=== PATIENT | male | born 1955 | race Caucasian/White ===

== ENCOUNTER → 2018-02-21 16:11 | Outpatient (CLI) | payer BC, SELFPAY ==
--- NOTE | 2018-02-21 16:11 | DT_ITS ---
This patient was seen during an EMR downtime February 18, 2018 - February 25, 2018. This patient may have a combination of paper and electronic documentation or all paper documentation. All documentation is viewable within the e-chart portion of [facility] for each patient visit.
[2018-02-26 01:39] LABS: PSA,Total- Diagnostic < 0.01 ng/mL (0.0-4.0)
== END ==
PROVIDERS: Visit Provider Nurse Practitioner Adult Health
DX: Z85.46 Personal history of malignant neoplasm of prostate (principal)
CPT/HCPCS: 36415; 84153

== ENCOUNTER → 2018-03-04 16:58 | Outpatient (CLI) | payer BC, SELFPAY ==
--- NOTE | 2018-03-04 | CYSPIN_PTH ---
PATIENT: ENMANUEL PHAM LOC: [facility] U#:[id number] AGE/SX: 69/M ROOM: RE03/04/[address]: NIRAV De Santiago : 1955 BED: DIS: SPEC #: [id number] RECD: 03/04/18 10:30 STATUS: KELLEY NICO #: [id number] VINITA: 03/04/18 00:[address]: Rosalie Barbosa NP DEPT: CYTOLOGY RECD BY: Paras Hui Tissues: Urine Procedures: Pap Stain (control) Special Stain Group II Cytospin Fluid HEADER OPERATION: Not noted PRE-OP DIAGNOSIS: History bladder neoplasm TISSUE SUBMITTED: Urine for cytology DIAGNOSIS CYTOLOGY Urine for cytology (cytospin): Atypical urothelial cells noted suspicious for urothelial carcinoma. 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 CYTOLOGY STUDY Slides are reviewed. CYTOLOGY GROSS Received is 70 ml of clear yellow fluid labeled with the patient's name and and designated per the requisition as urine. Submitted for cytology preparation. 03/05/18 TC:5 CPT: 45594
[2018-03-04 17:00] LABS: Cytology, Body Fluid / CSF SEE PATHOLOGY REPORT
== END ==
PROVIDERS: Visit Provider Nurse Practitioner Adult Health
DX: Z85.51 Personal history of malignant neoplasm of bladder (principal)
CPT/HCPCS: 88108; 88313

== ENCOUNTER → 2018-03-11 17:48 | Outpatient (CLI) | payer BC, SELFPAY ==
--- NOTE | 2018-03-11 | IMM_PTH ---
PATIENT: ENMANUEL PHAM LOC: [facility] U#:[id number] AGE/SX: 69/M ROOM: RE03/11/[address]: Dr. Heriberto Sherman MD : 1955 BED: DIS: SPEC #: [id number] RECD: 03/13/18 10:32 STATUS: KELLEY REQ #: [id number] VINITA: 03/11/18 00:[address]: Heriberto Sherman DEPT: IMMUNOHISTOCHEMISTRY RECD BY: Petrona De ENTERED: 03/13/18 10:33 SP TYPE: IMMUNO OTHR DR: Dr. Edwar Warner DO Tissues: Urinary bladder, NOS Procedures: CK20 (add) P53 (add) CK7 (initial) PHYSICIAN & INSTITUTION [place] [id number] SPECIMEN INFORMATION: Tissue Source: Bladder biopsy Clinical Info: Bladder mass, hematuria Specimen Number: [id number] CPT code: 94156, 22966 x2 METHODOLOGY: Deparaffinized sections of prefer/formalin-fixed tissue or PAP/DQ stained slides are incubated with monoclonal/polyclonal antibodies/oligonucleotide probes. Localization is made via biotin free immunoperoxidase method. Appropriate controls are performed and reacted as expected. Results on target cell population are indicated in the following table: RESULTS: ANTIBODY / CLONE RESULT CK7 (OV-TL12/30) positive CK20 (KS20.8) positive, focal P53 (DO-7) negative These tests were developed and their performance characteristics determined by [facility]. They may not have been cleared or approved by the U.[place]. Food and Drug Administration. The FDA has determined that such clearance or approval is not necessary. INTERPRETATION: Bladder biopsy: Negative for malignancy. This case has been reviewed in consultation with Dr. Casillas who concurs with the above diagnosis. SJ:cris 03/13/18
--- NOTE | 2018-03-11 16:35 | BLA_PTH ---
PATIENT: ENMANUEL PHAM LOC: [facility] U#:[id number] AGE/SX: 69/M ROOM: RE03/11/[address]: Dr. Heriberto Sherman MD : 1955 BED: DIS: SPEC #: [id number] RECD: 03/11/18 00:00 STATUS: KELLEY NICO #: [id number] VINITA: 03/11/18 16:[address]: Heriberto Sherman DEPT: SURGICAL PATHOLOGY RECD BY: Paras Hui Tissues: Urinary bladder, NOS Procedures: Surgery Specimen Level IV HEADER OPERATION: Bladder biopsy PRE-OP DIAGNOSIS: Bladder mass, hematuria TISSUE SUBMITTED: Bladder biopsy MICROSCOPIC DIAGNOSIS Bladder, biopsy: Fragmental urothelial mucosa with mild urothelial hyperplasia. See comment. Negative for malignancy. SJ:wayne 03/13/18 COMMENT Immunohistochemistry ([id number]) supports the above diagnosis. 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 urine for cytology with diagnosis of atypical urothelial cells suspicious for urothelial carcinoma. Slides are reviewed again. Case has been reviewed in consultation with Dr. Casillas who concurs with the above diagnosis. IDC:AM MICROSCOPIC DESCRIPTION Slides are reviewed. GROSS DESCRIPTION Received in fixative is one container labeled with the patient's name and designated no other designation. The specimen consists of one minute fragment of tissue measuring 0.1 x 0.2 x less than 0.1. The specimen is totally submitted in one cassette in a biopsy bag. KYLE:wayne 03/11/18 TC: 5 CPT: 08545
== END ==
PROVIDERS: Family Provider Family Medicine; PCP Family Medicine; Visit Provider Urology
DX: N32.9 Bladder disorder, unspecified (principal); R31.9 Hematuria, unspecified
CPT/HCPCS: 88305; 88341; 88342

== ENCOUNTER → 2018-08-19 09:53 | Outpatient (CLI) | payer OTHER, SELFPAY ==
[2018-08-19 12:27] LABS: PSA,Total- Diagnostic < 0.01 ng/mL (0.0-4.0)
--- OUTSIDE RECORDS SUMMARY | 2018-10-12 14:39 | XMS RPT_ITS ---
:1955 Author Organization OHIP Care Team Providers Name Role Phone Heriberto Sherman Attending Unavailable Alana, Edwar Primary Care Unavailable Heriberto Sherman Attending Unavailable Heriberto Sherman Referring Unavailable Alana, Edwar Primary Care Unavailable Rosalie Barbosa Attending Unavailable Rosalie Barbosa Referring Unavailable KRISTIE RAYMUNDO Primary Care Unavailable Rosalie Barbosa Attending Unavailable KRISTIE RAYMUNDO Primary Care Unavailable Rosalie Barbosa Referring Unavailable Heriberto Sherman Attending Unavailable Heriberto Sherman Referring Unavailable Alana, Edwar Primary Care Unavailable Heriberto Sherman Attending Unavailable LaneHeriberto Referring Unavailable Alana, Edwar Primary Care Unavailable Alana, Edwar Primary Care Unavailable Jae Llanos Attending Unavailable PROBLEMS PROBLEMS DATE TYPE CONDITION / CODE ATTENDING STATUS SOURCE 08/30/2018 Unknown C67.9 - Malignant Lane Heriberto Active [place] neoplasm of [facility] bladder, Hospital unspecified / Repository C67.9(ICD-10) 08/19/2018 Unknown Z85.46 - Personal LaneHeriberto Active [place] 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 / Z85.46(ICD-10) PROCEDURES PROCEDURES No Procedure Records FoundRESULTS RESULTS CYTOSPIN ON FLUID Observed: 08/27/2018 Status: F Source: [place] 10:45 AM [facility] REPOSITORY Patient: ENMANUEL PHAM : 1955 (62/M) Acct Num: [id number] Phys: Lane SCHWAB,Henri Unit Num: [id number] Loc: LABSPEC Specimen: [id number] Received: 08/28/18 - 825 Spec Type: CYSPIN FL TISSUES 1 TISSUES: Urine COMMENT Please make reference to previous specimen ([id number]) urine for cytology with diagnosis of atypical urothelial cells noted suspicious for urothelial carcinoma and (Z24-2768) bladder, biopsy with diagnosis of fragments of urothelial mucosa with mild urothelial hyperplasia. CYTOLOGY GROSS Received is 10 ml of clear gold fluid labeled with the patient's name and and designated per the requisition as urine. Submitted for cytology preparation. / 08/28/18 TC:5 CPT: 04061 CYTOLOGY STUDY Slides are reviewed. DIAGNOSIS CYTOLOGY Urine for cytology (cytospin): Negative for malignant cells. Paucicellular specimen. SJ:alvino 08/29/18 HEADER OPERATION: Not noted PRE-OP DIAGNOSIS: Bladder CA TISSUE SUBMITTED: Urine for cytology Signed Cm Hamlin 08/29/18 <signature on file> Performed By: #### PCYSPIN #### [facility] [address] [place], [address] CYTOLOGY, BODY FLUID / Collected: 08/27/2018 Status: F Source: [place] CSF 10:45 AM [facility] REPOSITORY Order Comment: Specimen Source: URINE TYPE CODE TESTS RESULT OUT OF RANGE REFERENCE UNITS LAB L350.1000 SEE Normal PATHOLOGY CYTOLOGY,BF REPORT /CSF Result Comment: Specimen submitted to Anatomical Pathology Department for testing. Performed By: #### L350.1000 #### [facility] [address] [place], [address] 12 LEAD ELECTROCARDIOGRAM Observed: 08/26/2018 Status: F Source: [place] 1:41 PM [facility] REPOSITORY [facility] Cardiovascular Services [address] [place] [address] 12 Lead EKG 08/24/18 1206 MR#: [id number] Acct: [id number] Name: ENMANUEL PHAM Rep #: [id number] : 1955 62 From: Harjinder Cornelius MD Attending Dr: Status: DEP ER Ordering Dr: Jae Llanos MD Date: 08/24/18 Location: ED Sex: M C Admitted: Test Reason : DYSRHYHMIA Blood Pressure : / mmHG Vent. Rate : 082 BPM Atrial Rate : 082 BPM P-R Int : 164 ms QRS Dur : 088 ms QT Int : 364 ms P-R-T Axes : 045 -09 -02 degrees QTc Int : 425 ms Normal sinus rhythm Voltage criteria for left ventricular hypertrophy Abnormal ECG Confirmed by HARJINDER CORNELIUS MD ([id number]), associate entertainment editor ADRIENNE ALDRICH ([id number]) on 08/26/2018 1:40:49 PM Referred By: Heriberto Sherman Confirmed By:HARJINDER CORNELIUS MD 08/26/18 1340 Date Harjinder Cornelius MD CC: Jae Llanos MD; Edwar Warner DO Signed EMERGENCY DEPARTMENT Observed: 08/24/2018 Status: F Source: [place] SUMMARY 12:55 PM [facility] REPOSITORY [facility] Medical Records Department [address] [place] [address] Emergency Department Summary 08/24/18 1157 MR#: [id number] Acct: [id number] Name: ENMANUEL PHAM Rep #: [id number] : 1955 62 From: Jae Llanos MD PCP: Edwar Warner DO Status: REG ER - ER Visit Summary Date of Service: 08/24/18 Chief Complaint: High blood pressure History of Present Illness: The patient is a 62 M who presents with high blood pressure. He states he woke up today and took his blood pressure and it was 172/108. He took it multiple times and got around the same reading. He has no history of high blood pressure in the past. He denies chest pain or shortness of breath. Denies any other symptoms. Physical Examination: Vital signs reviewed. HEENT exam unremarkable. Heart is regular rate and rhythm without murmurs. Lungs are clear to auscultation. Abdomen is soft and nontender. Extremities reveal no edema. Skin exam normal. Neurologic exam normal. Test Results: White blood cell count 4.3, creatinine 1.31 Emergency Department Course and Treatment: Patient states he has a lot of stress which could be elevating his blood pressure. At this point I do not feel would be necessary to put him on antihypertensives. This is his first episode of hypertension. He has a follow-up appointment with his doctor in 6 days. If he does have elevated readings then they may consider it. Treatment Plan: [] Disposition: Discharge Impression: Hypertension This note was generated with buildabrand dictation software. It may contain incorrect words, spelling, and punctuation that were not noted in review of the chart prior to signing ED Disposition - Plan for ED Patient: Chief Complaint: Hypertension Referrals: Edwar Warner DO [Primary Care Provider] - What to do if you have Problems For any increased pain, shortness of breath, bleeding, nausea or vomiting, chest pain, or any unexpected problems, contact your Primary Care Provider. Call [facility] ([phone]) or report to the closest Emergency Room. Call 911 if necessary. 08/24/18 8589 <Electronically signed by Jae Llanos MD> Date Jae Llanos MD Cosigner Signature (If Indicated): Date CC: Edwar Warner DO DISCHARGE INSTRUCTION Observed: 08/24/2018 Status: F Source: [place] 12:55 PM [facility] REPOSITORY [facility] Medical Records Department [address] [place] [address] Discharge Instruction 08/24/18 1255 MR#: [id number] Acct: [id number] Name: ENMANUEL PHAM Rep #: [id number] : 1955 62 From: Jae Llanos MD PCP: Edwar Warner DO Status: REG ER ED Disposition - Plan for ED Patient: Disposition: Home or Assisted Living Chief Complaint: Hypertension Instructions: ED Hypertension Poss Referrals: Edwar Warner DO [Primary Care Provider] - What to do if you have Problems For any increased pain, shortness of breath, bleeding, nausea or vomiting, chest pain, or any unexpected problems, contact your Primary Care Provider. Call [facility] ([phone]) or report to the closest Emergency Room. Call 911 if necessary. 08/24/18 1255 <Electronically signed by Jae Llanos MD> Date Jae Llanos MD Cosigner Signature (If Indicated): Date CC: Edwar Warner DO CBC W/DIFF, AUTOMATED Collected: 08/24/2018 Status: F Source: [place] 12:25 PM [facility] REPOSITORY TYPE CODE TESTS RESULT OUT OF RANGE REFERENCE UNITS LAB L100.1000 4.4-11.0 K/mm3 Low WBC 4.3 LAB L100.1200 4.6-6.2 M/mm3 Low RBC 4.54 LAB L100.1300 13.0-16.5 g/dl Normal HGB 13.5 LAB L100.1400 40-54 % Normal HCT 41.0 LAB L100.1500 80-94 fL Normal MCV 90.3 LAB L100.1600 27.0-32.0 pg Normal MCH 29.7 LAB L100.1700 32-36 g/gl Normal MCHC 32.9 LAB L100.1810 11.6-14.6 % Normal RDW CV 13.2 LAB L100.1820 35.1-43.9 fl Normal RDW SD 43.0 LAB L100.1900 150-450 K/mm3 Normal PLT 280 LAB L100.2000 6.2-12.0 fl Normal MPV 9.2 LAB L100.2100 47-70 % High NEUT% 73.5 LAB L100.2200 19-41 % Low LY% 16.9 LAB L100.2300 0-10 % Normal MONO% 7.9 LAB L100.2400 0-5 % Normal EO% 1.2 LAB L100.2500 0-1 % Normal BASO% 0.5 LAB L100.2550 0.0-0.9 % Normal IM GRAN % 0.000 Result Comment: IG% - Immature Granulocytes (promyelocytes, myelocytes and metamyelocytes) > 1% indicates that a LEFT SHIFT is Present. LAB L100.2620 2.0-7.7 X10 3/uL Normal Absolute Neut 3.2 LAB L100.2720 0.83-4.51 X10 3/ul Low Absolute Lymph 0.73 Performed By: #### L100.0100 #### [facility] [address], [address] BASIC METABOLIC Collected: 08/24/2018 Status: F Source: [place] PROFILE ([facility]) 12:25 PM [facility] REPOSITORY TYPE CODE TESTS RESULT OUT OF RANGE REFERENCE UNITS LAB L501.0100 74-106 mg/dL Normal GLU 88 Result Comment: Please note revised GLUCOSE reference range effective 2017. LAB L501.1000 7-18 mg/dL High BUN 23 LAB L501.1100 0.70-1.30 mg/dL High CREAT,SERUM 1.31 Result Comment: The validity of the calculated GFR AND GFRAA in patients over 70 years has not been determined. Clinical correlation is essential. LAB L501.1110 >60 mL/min Low EST GFR 58 Result Comment: Non- GFR Calc LAB L501.1115 >60 mL/min Normal EST GFR - AA 71 Result Comment: GFR Calc LAB L501.1255 ml/min Normal Estimated CRCL 55.11 LAB L501.1300 10-20 RATIO Normal BUN/CRE 17.6 LAB L501.2200 8.5-10 mg/dL Normal .1 CA 8.6 LAB L501.5300 136-14 mmol/L Normal 5 NA 144 LAB L501.5600 3.5-5. mmol/L Normal 1 K 3.9 LAB L501.5900 98-107 mmol/L High CL 109 LAB L501.6100 21.0-3 mmol/L Normal 2.0 CO2 27.0 LAB L501.6200 5-15 Normal GAP 8 Performed By: #### L500.2500 #### [facility] [address] [place], [address] PSA,TOTAL- DIAGNOSTIC Collected: 08/19/2018 Status: F Source: [place] 9:59 AM [facility] REPOSITORY TYPE CODE TESTS RESULT OUT OF RANGE REFERENCE UNITS LAB L501.9940 0.0-4.0 ng/mL PSA, Normal DIAGNOSTIC < 0.01 Result Comment: This test was performed using the TPSA assay method for the [employer] chemistry system. Values obtained with different assay methods cannot be used interchangably. When changing PSA assays in the course of monitoring a patient, additional sequential testing should be carried out to confirm baseline values. Performed By: #### L501.9940 #### [facility] [address] [place], [address] BLADDER BX/FULGURATION Observed: 03/11/2018 Status: F Source: [place] 4:35 PM [facility] REPOSITORY Patient: ENMANUEL PHAM : 1955 (62/M) Acct Num: [id number] Phys: Lane SCHWAB,Henri Unit Num: [id number] Loc: LABSPEC Specimen: [id number] Received: 03/11/18 - K Spec Type: BLADDER BX TISSUES TISSUES: Urinary bladder, NOS COMMENT Immunohistochemistry ([id number]) supports the above diagnosis. 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 Slides are reviewed again. Case has been reviewed in consultation with Dr. Casillas who concurs with the above diagnosis. IDC:AM GROSS DESCRIPTION Received in fixative is one container labeled with the patient's name and designated no other designation. The specimen consists of one minute fragment of tissue measuring 0.1 x 0.2 x less than 0.1. The specimen is totally submitted in one cassette in a biopsy bag. RY:wayne 03/11/18 TC: 5 CPT: 92032 HEADER OPERATION: Bladder biopsy PRE-OP DIAGNOSIS: Bladder mass, hematuria TISSUE SUBMITTED: Bladder biopsy MICROSCOPIC DESCRIPTION Slides are reviewed. MICROSCOPIC DIAGNOSIS Bladder, biopsy: Fragmental urothelial mucosa with mild urothelial hyperplasia. See comment. Negative for malignancy. SJ:wayne 03/13/18 Signed Cm Hamlin 03/14/18 <signature on file> Performed By: #### PBLA #### [facility] [address] [place], [address] IMMUNOHISTOCHEMISTRY Observed: 03/11/2018 Status: F Source: [place] 12:00 AM [facility] REPOSITORY Patient: ENMANUEL PHAM : 1955 (62/M) Acct Num: [id number] Phys: Lane SCHWAB,Henri Unit Num: [id number] Loc: LABSPEC Specimen: [id number] Received: 03/13/18 - 1032 Spec Type: IMMUNO TISSUES TISSUES: Urinary bladder, NOS SPECIMEN INFORMATION: Tissue Source: Bladder biopsy Clinical Info: Bladder mass, hematuria Specimen Number: [id number] CPT code: 37521, 93201 x2 METHODOLOGY: Deparaffinized sections of prefer/formalin-fixed tissue or PAP/DQ stained slides are incubated with monoclonal/polyclonal antibodies/oligonucleotide probes. Localization is made via biotin free immunoperoxidase method. Appropriate controls are performed and reacted as expected. Results on target cell population are indicated in the following table: RESULTS: ANTIBODY / CLONE RESULT CK7 (OV-TL12/30) positive CK20 (KS20.8) positive, focal P53 (DO-7) negative These tests were developed and their performance characteristics determined by [facility]. They may not have been cleared or approved by the U.S. Food and Drug Administration. The FDA has determined that such clearance or approval is not necessary. INTERPRETATION: Bladder biopsy: Negative for malignancy. This case has been reviewed in consultation with Dr. Casillas who concurs with the above diagnosis. SJ:cris 03/13/18 PHYSICIAN AND INSTITUTION [address] [address] Signed Cm Garciain 03/14/18 <signature on file> Performed By: #### PIMM #### [facility] [address] [place], [place] [address]deric. [place], [place], [address] DOWNTIME REPORT Observed: 03/07/2018 Status: F Source: [place] 2:08 PM [facility] REPOSITORY [facility] Medical Records Department [address] [place] [address] Downtime Report MR#: [id number] Acct: [id number] Name: ENMANUEL PHAM Rep #: [id number] : 1955 62 From: Marciano Aldrich PCP: OUT OF TOWN DOCTOR Status: REG CLI This patient was seen during an EMR downtime February 18, 2018 - February 25, 2018. This patient may have a combination of paper and electronic documentation or all paper documentation. All documentation is viewable within the e-chart portion of [employer] for each patient visit. CYTOLOGY, BODY FLUID / Collected: 03/04/2018 Status: F Source: [place] CSF 10:30 AM [facility] REPOSITORY Order Comment: Specimen Source: URINE TYPE CODE TESTS RESULT OUT OF RANGE REFERENCE UNITS LAB L350.1000 SEE Normal PATHOLOGY CYTOLOGY,BF REPORT /CSF Result Comment: Specimen submitted to Anatomical Pathology Department for testing. Performed By: #### L350.1000 #### [facility] [address] [place], [place] [address] [place], [place], [address] CYTOSPIN ON FLUID Observed: 03/04/2018 Status: F Source: [place] 12:00 AM [facility] REPOSITORY Patient: ENMANUEL PHAM : 1955 (62/M) Acct Num: [id number] Phys: Rosalie Barbosa NP Unit Num: [id number] Loc: LABSPEC Specimen: [id number] Received: 03/04/18 - 1030 Spec Type: CYSPIN FL TISSUES TISSUES: Urine COMMENT Please make reference to previous specimen ([id number]) bladder tumor, biopsy with diagnosis of fragments of urothelial mucosa with papillary urothelial neoplasm of uncertain malignant potential. CYTOLOGY GROSS Received is 70 ml of clear yellow fluid labeled with the patient's name and and designated per the requisition as urine. Submitted for cytology preparation. / 03/05/18 TC:5 CPT: 23937 CYTOLOGY STUDY Slides are reviewed. DIAGNOSIS CYTOLOGY Urine for cytology (cytospin): Atypical urothelial cells noted suspicious for urothelial carcinoma. SJ:alvino 03/06/18 HEADER OPERATION: Not noted PRE-OP DIAGNOSIS: History bladder neoplasm TISSUE SUBMITTED: Urine for cytology Signed Cm Hamlin 03/06/18 <signature on file> Performed By: #### PCYSPIN #### [facility] [address] [place], [address] PSA,TOTAL- DIAGNOSTIC Collected: 02/21/2018 Status: F Source: [place] 4:19 PM [facility] REPOSITORY Order Comment: RESULT(S) PREVIOUSLY REPORTED ON MANUAL REQUISITION DURING DOWNTIME. TYPE CODE TESTS RESULT OUT OF RANGE REFERENCE UNITS LAB L501.9940 0.0-4.0 ng/mL PSA, Normal DIAGNOSTIC < 0.01 Result Comment: This test was performed using the TPSA assay method for the [employer] chemistry system. Values obtained with different assay methods cannot be used interchangably. When changing PSA assays in the course of monitoring a patient, additional sequential testing should be carried out to confirm baseline values. Performed By: #### L501.9940 #### [facility] [address] [place], [address] ALLERGIES ALLERGIES DATE TYPE / CODE NAME / CODE REACTION SEVERITY SOURCE 08/24/2018 Drug No Known Unknown [facility] Allergy/4160 Allergies/F00 Hospital 25669(SNOMED 8335016(RXNOR Repository CT) M) ENCOUNTERS ENCOUNTERS ADMIT/DISCHARGE ACCOUNT ADMITTING ENCOUNTER LOCATION SOURCE NUMBER CLASS 08/28/2018 [id number] Ambulatory [place] 7 [facility] ing:LAB.FUTUR Repository E 08/27/2018 [id number] Ambulatory [place] 3 [facility] ing:LABSPEC Repository 08/24/2018/ [id number] Emergency [place] 8 1 [facility] ing:ED Repository 08/19/2018 [id number] Ambulatory [place] 6 [facility] ing:MTLAB Repository 03/11/2018 [id number] Ambulatory [place] 0 [facility] ing:LABSPEC Repository 03/04/2018 [id number] Ambulatory [place] 4 [facility] ing:LABSPEC Repository 02/21/2018 [id number] Ambulatory [place] 2 [facility] ing:LAB Repository PAYERS PAYERS ENCOUNTER GUARANTOR PAYER SUBSCRIBER SOURCE 08/28/2018 ENMANUEL A Primary ENMANUEL A [place] [id number] Insurance:AULTCAREPol SCALEDOB: [facility] WHITETAIL icy Number: [id number] [place]ository [place] [address]Bfq: e Date:[id number] [address] () [phone]: 08/28/2018 Secondary NOT GIVENUNK [place] Insurance:SELF PAY [facility] Number: Effective Repository Date:2018-08-28 08/27/2018 ENMANUEL A Primary ENMANUEL A [place] [id number] Insurance:AULTCAREPol SCALEDOB: [facility] WHITETAIL icy Number: [id number] Repository [place] [address]Pti: e Date:6591-55-57XB [address] () [phone]: 08/27/2018 Secondary NOT GIVENUNK [place] Insurance:SELF PAY [facility] Number: Effective Repository Date:2018-08-27 08/24/2018 ENMANUEL A Primary ENMANUEL A [place] [id number] Insurance:AULTCAREPol SCALEDOB: Community [place]ET[place] icy Number: [id number], [id number] [place]ository [place] [address]Uby: e Date:2235-76-33FE [address] [place] [address] () [phone]: 08/24/2018 Secondary NOT GIVENUNK [place] Insurance:SELF PAY [facility] Number: Effective Repository Date:2018-08-24 08/19/2018 ENMANUEL A Primary ENMANUEL A [place] [id number] Insurance:AULTCAREPol SCALEDOB: Community [place]ET[place] icy Number: [id number] [facility] Hospital, [id number] [place]ository [place] [address]Xxn: e Date:5539-32-66MA [address] [place] [address] () [phone]: 08/19/2018 Secondary NOT GIVENUNK [place] Insurance:SELF PAY [facility] Number: Effective Repository Date:2018-08-19 03/11/2018 Enmanuel A Primary Enmanuel A [place] [id number] Insurance:ANTHEMPolic ScaleDOB: Community [place] y Number: [id number]abb [facility] [id number] Repository [place] [address]Qra: Date:3810-63-04RR [address] [place] [address] () [phone]: 03/11/2018 Secondary NOT GIVENUNK [place] Insurance:SELF PAY [facility] Number: Effective Repository Date:2018-03-11 03/04/2018 Enmanuel A Primary Enmanuel A [place] [id number] Insurance:ANTHEMPolic ScaleDOB: Community [place] y Number: [id number], [id number] Repository [place] [address]Jgf: Date:7715-27-87LL [address] [place] [address] () [phone]: 03/04/2018 Secondary NOT GIVENUNK [place] Insurance:SELF PAY [facility] Number: Effective Repository Date:2018-03-04 02/21/2018 Enmanuel A Primary Enmanuel [place] [id number] Insurance:ANTHEMPolic ScaleDOB: Community [place] y Number: [id number] Brook [facility] [id number] Repository [place] [address]Joi: Date:9325-30-19[id number] [place] [address] () [phone]: 02/21/2018 Secondary NOT GIVENUNK [place] Insurance:SELF PAY [facility] Number: Effective Repository Date:2018-02-21
== END ==
PROVIDERS: Family Provider Family Medicine; PCP Family Medicine; Referring Provider Urology; Visit Provider Urology
DX: Z85.46 Personal history of malignant neoplasm of prostate (principal)
CPT/HCPCS: 36415; 84153

== ENCOUNTER 2018-08-24 11:41 | Emergency (ER) | payer OTHER, SELFPAY ==
[2018-08-24 11:43] VITALS: BP 164/103; PULSE 95; RESP 18; TEMP 36.3; O2SAT 99; BMI 27.0
--- NOTE | 2018-08-24 11:57 | EKG12_ITS ---
Test Reason : DYSRHYHMIA Blood Pressure : / mmHG Vent. Rate : 082 BPM Atrial Rate : 082 BPM P-R Int : 164 ms QRS Dur : 088 ms QT Int : 364 ms P-R-T Axes : 045 -09 -02 degrees QTc Int : 425 ms Normal sinus rhythm Voltage criteria for left ventricular hypertrophy Abnormal ECG Confirmed by STEFANIA SCHWAB, AASHISH ([id number]), assignment editor ADRIENNE ALDRICH ([id number]) on 08/26/2018 1:40:49 PM Referred By: Heriberto Sherman Confirmed By:AASHISH AGUIAR MD
--- NOTE | 2018-08-24 11:58 | ED.DCSUM_ITS ---
- ER Visit Summary Date of Service: 08/24/18 Chief Complaint: High blood pressure History of Present Illness: The patient is a 62 M who presents with high blood pressure. He states he woke up today and took his blood pressure and it was 172/108. He took it multiple times and got around the same reading. He has no history of high blood pressure in the past. He denies chest pain or shortness of breath. Denies any other symptoms. Physical Examination: Vital signs reviewed. HEENT exam unremarkable. Heart is regular rate and rhythm without murmurs. Lungs are clear to auscultation. Abdomen is soft and nontender. Extremities reveal no edema. Skin exam normal. Neurologic exam normal. Test Results: White blood cell count 4.3, creatinine 1.31 Emergency Department Course and Treatment: Patient states he has a lot of stress which could be elevating his blood pressure. At this point I do not feel would be necessary to put him on antihypertensives. This is his first episode of hypertension. He has a follow-up appointment with his doctor in 6 days. If he does have elevated readings then they may consider it. Treatment Plan: [] Disposition: Discharge Impression: Hypertension This note was generated with [employer] dictation software. It may contain incorrect words, spelling, and punctuation that were not noted in review of the chart p rior to signing ED Disposition - Plan for ED Patient: Chief Complaint: Hypertension Referrals: Edwar Warner DO [Primary Care Provider] -
[2018-08-24 12:19] VITALS: BP 160/111
[2018-08-24 12:36] LABS: Absolute Lymphocyte Count 0.73 X10^3/ul (0.83-4.51); Absolute Neutrophil Count 3.2 X10^3/uL (2.0-7.7); Basophil# 0.02 X10^3/uL; Basophil% 0.5 % (0-1); Eosinophil# 0.05 X10^3/uL; Eosinophils% 1.2 % (0-5); Hemoglobin 13.5 g/dl (13.0-16.5); Lymphocyte # 0.73 X10^3/ul (4.0); Lymphocyte % 16.9 % (19-41); Mean Corp Hgb Conc 32.9 g/gl (32-36); Mean Corpuscular Hgb 29.7 pg (27.0-32.0); Mean Corpuscular Volume 90.3 fL (80-94); Mean Platelet Vol. 9.2 fl (6.2-12.0); Monocyte# 0.34 X10^3/uL; Monocyte% 7.9 % (0-10); Neutrophil # 3.18 X10^3/uL (2.7-7.7); Neutrophil % 73.5 % (47-70); Platelet Count 280 K/mm3 (150-450); RBC Distribution Width CV 13.2 % (11.6-14.6); Red Blood Count 4.54 M/mm3 (4.6-6.2); White Blood Count 4.3 K/mm3 (4.4-11.0)
[2018-08-24 12:38] LABS: POSITIVE COUNT NO; POSITIVE DIFFERENTIAL NO; POSITIVE MORPHOLOGY NO
[2018-08-24 12:43] LABS: Anion Gap 8 (5-15); BUN 23 mg/dL (7-18); BUN/Creat Ratio 17.6 RATIO (10-20); Calcium,Total 8.6 mg/dL (8.5-10.1); Chloride 109 mmol/L (98-107); Creatinine, Serum 1.31 mg/dL (0.70-1.30); EST Glomerular Filtration Rate 58 mL/min (>60); Est Glom Filt Rate - Afr Amer 71 mL/min (>60); Estimated Creatinine Clearance 55.11 ml/min; Glucose 88 mg/dL (74-106); Potassium 3.9 mmol/L (3.5-5.1); Sodium Level 144 mmol/L (136-145)
--- NOTE | 2018-08-24 12:55 | ED.DEP ---
ED Disposition - Plan for ED Patient: Disposition: Home or Assisted Living Chief Complaint: Hypertension Instructions: ED Hypertension Poss Referrals: Edwar Warner DO [Primary Care Provider] -
[2018-08-24 13:07] VITALS: BP 155/102; PULSE 97; RESP 16; O2SAT 98
== END 2018-08-24 13:09 | disposition home or self-care (01) ==
PROVIDERS: Emergency Provider Emergency Medicine; Family Provider Family Medicine; PCP Family Medicine
DX: I10 Essential (primary) hypertension (principal); Z79.899 Other long term (current) drug therapy
CPT/HCPCS: 80048; 85025; 93005; 99282; A4216

== ENCOUNTER → 2018-08-27 18:51 | Outpatient (CLI) | payer OTHER, SELFPAY ==
[2018-08-24 11:43] VITALS: BMI 27.0
--- NOTE | 2018-08-27 10:45 | CYSPIN_PTH ---
PATIENT: ENMANUEL PHAM LOC: [facility] U#:[id number] AGE/SX: 69/M ROOM: RE08/27/[address]: Dr. Heriberto Sherman MD : 1955 BED: DIS: SPEC #: [id number] RECD: 08/28/18 08:26 STATUS: KELLEY NICO #: [id number] VINITA: 08/27/18 10:[address]: Heriberto Sherman DEPT: CYTOLOGY RECD BY: Paras Hui ENTERED: 08/28/18 08:28 SP TYPE: CYSPIN FL OTHR DR: Dr. Edwar Warner, DO Tissues: Urine Procedures: Pap Stain (control) Special Stain Group II Cytospin Fluid HEADER OPERATION: Not noted PRE-OP DIAGNOSIS: Bladder CA TISSUE SUBMITTED: Urine for cytology DIAGNOSIS CYTOLOGY Urine for cytology (cytospin): Negative for malignant cells. Paucicellular specimen. SJ:alvino 08/29/18 COMMENT Please make reference to previous specimen ([id number]) urine for cytology with diagnosis of atypical urothelial cells noted suspicious for urothelial carcinoma and ([id number]) bladder, biopsy with diagnosis of fragments of urothelial mucosa with mild urothelial hyperplasia. CYTOLOGY STUDY Slides are reviewed. CYTOLOGY GROSS Received is 10 ml of clear gold fluid labeled with the patient's name and and designated per the requisition as urine. Submitted for cytology preparation. 08/28/18 TC:5 CPT: 28581
[2018-08-27 21:20] LABS: Cytology, Body Fluid / CSF SEE PATHOLOGY REPORT
--- OUTSIDE RECORDS SUMMARY | 2018-10-14 00:08 | XMS RPT_ITS ---
:1955 Author Organization OHIP Care Team Providers Name Role Phone Heriberto Sherman Attending Unavailable Alana, Edwar Primary Care Unavailable Heriberto Sherman Attending Unavailable Heriberto Sherman Referring Unavailable Alana, Edwar Primary Care Unavailable Alana, Edwar Attending Unavailable Alana, Edwar Primary Care Unavailable Alana, Edwar Primary Care Unavailable Jae Llanos Attending Unavailable Heriberto Sherman Attending Unavailable Heriberto Sherman Referring Unavailable Alana, Edwar Primary Care Unavailable Heriberto Sherman Attending Unavailable LaneHeriberto Referring Unavailable Alana, Edwar Primary Care Unavailable Rosalie Barbosa Attending Unavailable KRISTIE RAYMUNDO Primary Care Unavailable Rosalie Barbosa Referring Unavailable Rosalie Barbosa Attending Unavailable Rosalie Barbosa Referring Unavailable KRISTIE RAYMUNDO Primary Care Unavailable PROBLEMS PROBLEMS DATE TYPE CONDITION / CODE ATTENDING STATUS SOURCE 09/05/2018 Unknown Z00.00 - Edwar Warner Active [place] Encounter for [facility] medical Repository examination without abnormal findings / Z00.00(ICD-10) 08/30/2018 Unknown C67.9 - Malignant Heriberto Sherman Active Kasia neoplasm of [facility] bladder, Hospital unspecified / Repository C67.9(ICD-10) 08/19/2018 Unknown Z85.46 - Personal Lane Heriberto Active 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 Serum Triglycerides Reference Interval Normal <150 mg/dL Borderline high 150 - 199 mg/dL High 200 - 499 mg/dL Very High > or = 500 mg/dL LAB L501.6400 mg/dL Normal HDL 51 Result Comment: The drugs N-Acetylcysteine and Metamizole may falsely depress this assay. Reference Range HDL <40 mg/dL Low HDL Cholesterol HDL >or= 60 mg/dL High HDL Cholesterol LAB L501.6500 0-130 mg/dL High LDL 194 LAB L501.6600 5-40 mg/dL Normal VLDL 20 Performed By: #### L500.4100 #### [facility] [address] [place], [place], [address] CYTOSPIN ON FLUID Observed: 08/27/2018 Status: F Source: KASIA 10:45 AM [facility] REPOSITORY Patient: ENMANUEL PHAM : 1955 (62/M) Acct Num: [id number] Phys: Lane SCHWAB,Heriberto Bowens Unit Num: [id number] Loc: LABSPEC Specimen: [id number] Received: 08/28/18 - 825 Spec Type: CYSPIN FL TISSUES 1 TISSUES: Urine COMMENT Please make reference to previous specimen ([id number]) urine for cytology with diagnosis of atypical urothelial cells noted suspicious for urothelial carcinoma and (K58-1393) bladder, biopsy with diagnosis of fragments of urothelial mucosa with mild urothelial hyperplasia. CYTOLOGY GROSS Received is 10 ml of clear gold fluid labeled with the patient's name and and designated per the requisition as urine. Submitted for cytology preparation. / 08/28/18 TC:5 CPT: 79996 CYTOLOGY STUDY Slides are reviewed. DIAGNOSIS CYTOLOGY Urine for cytology (cytospin): Negative for malignant cells. Paucicellular specimen. SJ:alvino 08/29/18 HEADER OPERATION: Not noted PRE-OP DIAGNOSIS: Bladder CA TISSUE SUBMITTED: Urine for cytology Signed Cm Hamlin 08/29/18 <signature on file> Performed By: #### PCYSPIN #### [facility] [address] [place], [address] CYTOLOGY, BODY FLUID / Collected: 08/27/2018 Status: F Source: KASIA CSF 10:45 AM [facility] REPOSITORY Order Comment: Specimen Source: URINE TYPE CODE TESTS RESULT OUT OF RANGE REFERENCE UNITS LAB L350.1000 SEE Normal PATHOLOGY CYTOLOGY,BF REPORT /CSF Result Comment: Specimen submitted to Anatomical Pathology Department for testing. Performed By: #### L350.1000 #### [facility] [address] [place], [address] 12 LEAD ELECTROCARDIOGRAM Observed: 08/26/2018 Status: F Source: KASIA 1:41 PM [facility] REPOSITORY [facility] [address] [place] [address] 12 Lead EKG 08/24/18 1206 MR#: [id number] Acct: [id number] Name: ENMANUEL PHAM Rep #: [id number] : 1955 62 From: Harjinder Aguiar MD Attending Dr: Status: DEP ER Ordering [...] ventricular hypertrophy Abnormal ECG Confirmed by HARJINDER AGUIAR MD ([id number]), mapping editor ADRIENNE ALDRICH ([id number]) on 08/26/2018 1:40:49 PM Referred By: Heriberto Sherman Confirmed By:HARJINDER AGUIAR MD 08/26/18 1340 Date Harjinder Aguiar MD CC: Jae Llanos MD; Edwar Warner DO Signed EMERGENCY DEPARTMENT Observed: 08/24/2018 Status: F Source: [place] SUMMARY 12:55 PM [facility] REPOSITORY [facility] Medical Records Department [address] [place] [address] Emergency Department Summary 08/24/18 1157 MR#: [id number] Acct: [id number] Name: ENMANUEL PHAM Rep #: [id number] : 1955 62 From: Jae Llanos MD [...] Impression: Hypertension This note was generated with [employer] dictation software. It may contain incorrect words, [...] your Primary Care Provider. Call [facility] ([phone]) or report to the closest Emergency Room. Call 911 if necessary. 08/24/18 1255 <Electronically signed by Jae Llanos MD> Date Jae Llanos MD Cosigner Signature (If Indicated): Date CC: Edwar Warner DO DISCHARGE INSTRUCTION Observed: 08/24/2018 Status: F Source: KASIA 12:55 PM [facility] REPOSITORY [facility] Medical Records Department [address] [place] [address] Discharge Instruction 08/24/18 1255 MR#: [id number] Acct: [id number] Name: ENMANUEL PHAM Rep #: [id number] : 1955 62 From: Jae Llanos MD PCP: Edwar Warner DO Status: REG ER ED Disposition - Plan for ED Patient: Disposition: Home or Assisted Living Chief Complaint: Hypertension Instructions: ED Hypertension Poss Referrals: Alana,Edwar, DO [Primary Care Provider] - What to do if you have Problems For any increased pain, shortness of breath, bleeding, nausea or vomiting, chest pain, or any unexpected problems, contact your Primary Care Provider. Call [facility] ([phone]) or report to the closest Emergency Room. Call 911 if necessary. 08/24/18 1255 <Electronically signed by Jae Llanos MD> Date Jae Llanos MD Cosigner Signature (If Indicated): Date CC: Edwar Warner DO CBC W/DIFF, AUTOMATED Collected: 08/24/2018 Status: F Source: KASIA 12:25 PM [facility] REPOSITORY TYPE CODE TESTS RESULT OUT OF [...] Lymph 0.73 Performed By: #### L100.0100 #### [facility] [address] [facility] [address] [place], [place], [address] BASIC METABOLIC Collected: 08/24/2018 Status: F Source: [place] PROFILE (BMP) 12:25 PM [facility] REPOSITORY TYPE CODE TESTS RESULT OUT OF [...] GAP 8 Performed By: #### L500.2500 #### [facility] [address] [place], [address] PSA,TOTAL- DIAGNOSTIC Collected: 08/19/2018 Status: F Source: KASIA 9:59 AM [facility] REPOSITORY TYPE CODE TESTS RESULT OUT OF RANGE REFERENCE UNITS LAB L501.9940 0.0-4.0 ng/mL PSA, Normal DIAGNOSTIC < 0.01 Result Comment: This test was performed using the TPSA assay method for the [employer] chemistry system. Values obtained with different assay methods cannot be used interchangably. When changing PSA assays in the course of monitoring a patient, additional sequential testing should be carried out to confirm baseline values. Performed By: #### L501.9940 #### [facility] [address] [place], [address] BLADDER BX/FULGURATION Observed: 03/11/2018 Status: F Source: KASIA 4:35 PM [facility] REPOSITORY Patient: ENMANUEL PHAM : 1955 (62/M) Acct Num: [id number] Phys: Lane SCHWAB,Henri Unit Num: [id number] Loc: LABSPEC Specimen: [id number] Received: 03/11/18 - K Spec Type: BLADDER BX TISSUES TISSUES: Urinary bladder, NOS COMMENT Immunohistochemistry ([id number]) supports the above diagnosis. Please make reference to previous specimen [id number] bladder tumor, biopsy diagnosis of fragmental urothelial [...] biopsy bag. RY:wayne 03/11/18 TC: 5 CPT: 77592 HEADER OPERATION: Bladder biopsy PRE-OP DIAGNOSIS: Bladder mass, hematuria TISSUE SUBMITTED: Bladder biopsy MICROSCOPIC DESCRIPTION Slides are reviewed. MICROSCOPIC DIAGNOSIS Bladder, biopsy: Fragmental urothelial mucosa with mild urothelial hyperplasia. See comment. Negative for malignancy. SJ:wayne 03/13/18 Signed Cm Hamlin 03/14/18 <signature on file> Performed By: #### PBLA #### [facility] [address] [place] [address]. [place], [place], [id number] IMMUNOHISTOCHEMISTRY Observed: 03/11/2018 Status: F Source: [place] 12:00 AM [facility] REPOSITORY Patient: ENMANUEL PHAM : 1955 (62/M) Acct Num: [id number] Phys: Lane SCHWAB,Heriberto Bowens Unit Num: [id number] Loc: LABSPEC Specimen: [id number] Received: 03/13/18 - 2 Spec Type: IMMUNO TISSUES TISSUES: Urinary bladder, NOS SPECIMEN INFORMATION: Tissue Source: Bladder biopsy Clinical Info: Bladder mass, hematuria Specimen Number: [id number] CPT code: 50026, 40494 x2 METHODOLOGY: Deparaffinized sections of prefer/formalin-fixed tissue [...] developed and their performance characteristics determined by [facility]. They may not have been cleared or approved by the U.S. Food and Drug Administration. The FDA has determined that such clearance or approval is not necessary. INTERPRETATION: Bladder biopsy: Negative for malignancy. This case has been reviewed in consultation with Dr. Casillas who concurs with the above diagnosis. SJ:cris 03/13/18 PHYSICIAN [facility] INSTIT[facility] [address] [address] Signed Cm Hamlin 03/14/18 <signature on file> Performed By: #### PIMM #### [facility] [address] [place], [address] DOWNTIME REPORT Observed: 03/07/2018 Status: F Source: KASIA 2:08 PM [facility] REPOSITORY [facility] Medical Records Department [address] [place] [address] Downtime Report MR#: [id number] Acct: [id number] Name: ENMANUEL PHAM Rep #: [id number] : 1955 62 From: Marciano Aldrich PCP: OUT OF TOWN DOCTOR Status: REG CLI This patient was seen during an EMR downtime February 18, 2018 - February 25, 2018. This patient may have a combination of paper and electronic documentation or all paper documentation. All documentation is viewable within the e-chart portion of [employer] for each patient visit. CYTOLOGY, BODY FLUID / Collected: 03/04/2018 Status: F Source: [place] CSF 10:30 AM [facility] REPOSITORY Order Comment: Specimen Source: URINE TYPE CODE TESTS RESULT OUT OF RANGE REFERENCE UNITS LAB L350.1000 SEE Normal PATHOLOGY CYTOLOGY,BF REPORT /CSF Result Comment: Specimen submitted to Anatomical Pathology Department for testing. 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 CYTOLOGY GROSS Received is 70 ml of clear yellow fluid labeled with the patient's name and and designated per the requisition as urine. Submitted for cytology preparation. / 03/05/18 TC:5 CPT: 03323 CYTOLOGY STUDY Slides are reviewed. DIAGNOSIS CYTOLOGY Urine for cytology (cytospin): Atypical urothelial cells noted suspicious for urothelial carcinoma. SJ:alvino 03/06/18 HEADER OPERATION: Not noted PRE-OP DIAGNOSIS: History bladder neoplasm TISSUE SUBMITTED: Urine for cytology Signed Cm Hamlin 03/06/18 <signature on file> Performed By: #### PCYSPIN #### [facility] [address] [place], [address] PSA,TOTAL- DIAGNOSTIC Collected: 02/21/2018 Status: F Source: [place] 4:19 PM [facility] REPOSITORY Order Comment: RESULT(S) PREVIOUSLY REPORTED ON MANUAL REQUISITION DURING DOWNTIME. TYPE CODE TESTS RESULT OUT OF RANGE REFERENCE UNITS LAB L501.9940 0.0-4.0 ng/mL PSA, Normal DIAGNOSTIC < 0.01 Result Comment: This test was performed using the TPSA assay method for the Beebrite chemistry system. Values obtained with different assay methods cannot be used interchangably. When changing PSA assays in the course of monitoring a patient, additional sequential testing should be carried out to confirm baseline values. Performed By: #### L501.9940 #### [facility] [address] [place], [address] ALLERGIES ALLERGIES DATE TYPE / CODE NAME / CODE REACTION SEVERITY SOURCE 08/24/2018 Drug No Known Unknown [facility] Allergy/4160 Allergies/F00 Hospital 40158(SNOMED 4699563(RXNOR Repository CT) M) ENCOUNTERS ENCOUNTERS ADMIT/DISCHARGE ACCOUNT ADMITTING ENCOUNTER LOCATION SOURCE NUMBER CLASS 09/05/2018 [id number] Ambulatory [place] [facility] ing:BFHLAB Repository 08/28/2018 [id number] Ambulatory [place] 7 [facility] ing:LAB.FUTUR Repository E 08/27/2018 [id number] Ambulatory [place] [facility] ing:LABSPEC Repository 08/24/2018/ [id number] Emergency [place] 1 [facility] ing:ED Repository 08/19/2018 [id number] Ambulatory [place] 6 [facility] ing:MTLAB Repository 03/11/2018 [id number] Ambulatory [place] 0 [facility] ing:LABSPEC Repository 03/04/2018 [id number] Ambulatory [place] 4 [facility] ing:LABSPEC Repository 02/21/2018 [id number] Ambulatory [place] 2 [facility] ing:LAB Repository PAYERS PAYERS ENCOUNTER GUARANTOR PAYER SUBSCRIBER SOURCE 09/05/2018 ENMANUEL A Primary ENMANUEL A [place] [id number] Insurance:AULTCAREPol SCALEDOB: [facility] WHITETAIL icy Number: [id number] [id number] Repository [place] [address]Hho: e Date:7116-46-04CE [address] [place] [address] ) [address]UL: 09/05/2018 Secondary NOT GIVENUNK [place] Insurance:SELF PAY [facility] Number: Effective Repository Date:2018-09-05 08/28/2018 ENMANUEL A Primary ENMANUEL A [place] [id number] Insurance:AULTCAREPol SCALEDOB: Community [place]ET[place] icy Number: [id number] Repository [place] [address]Nov: e Date:6082-22-99QH [address] [place] [address] () [address]LY: 08/28/2018 Secondary NOT GIVENUNK [place] Insurance:SELF PAY [facility] Number: Effective Repository Date:2018-08-28 08/27/2018 ENMANUEL A Primary ENMANUEL A [place] [id number] Insurance:AULTCAREPol SCALEDOB: [facility] WH[place]ETAIL icy Number: [id number] City Hospital [id number] Repository [place] [address]Vdz: e Date:9564-80-35BL [address], [place] () [address]JV: 08/27/2018 Secondary NOT GIVENUNK [place] Insurance:SELF PAY [facility] Number: Effective Repository Date:2018-08-27 08/24/2018 ENMANUEL A Primary ENMANUEL A [place] [id number] Insurance:AULTCAREPol SCALEDOB: Community [place] icy Number: [id number] Medical Center, [id number] Repository [place] [address]Ocn: e Date:8582-74-07AN [address] [place] [address] () [address]IZ: 08/24/2018 Secondary NOT GIVENUNK [place] Insurance:SELF PAY [facility] Effective Repository Date:2018-08-24 08/19/2018 ENMANUEL A Primary ENMANUEL A [place] [id number] Insurance:AULTCAREPol SCALEDOB: Community [place] icy Number: [id number] Medical Center, [id number] [place]ository [place] [address]Tbf: e Date:7918-27-53UA [address] [place] [address] () [address]TK: 08/19/2018 Secondary NOT GIVENUNK [place] Insurance:SELF PAY [facility] Number: Effective Repository Date:2018-08-19 03/11/2018 Enmanuel A Primary Enmanuel A [place] [id number] Insurance:ANTHEMPolic ScaleDOB: Community [place] y Number: [id number] [id number] Repository [place] [address]Fcw: Date:5666-27-19CI [address] [place] [address] () [address]YI: 03/11/2018 Secondary NOT GIVENUNK [place] Insurance:SELF PAY [facility] Number: Effective Repository Date:2018-03-11 03/04/2018 Enmanuel A Primary Enmanuel A [place] [id number] Insurance:ANTHEMPolic ScaleDOB: Community [place] y Number: [id number] Rehabilitation Hospital [id number] Repository [place] [address]Maq: Date:2438-54-63PZ [address] [place] [address] () [address]UV: 03/04/2018 Secondary NOT GIVENUNK [place] Insurance:SELF PAY [facility] Number: Effective Repository Date:2018-03-04 02/21/2018 Enmanuel A Primary Enmanuel A [place] [id number] Insurance:ANTHEMPolic ScaleDOB: Community [place] y Number: [id number] [id number] Repository [place] [address]Inu: Date:5110-82-73JT [address] [place] [address] ) [address]OL: 02/21/2018 Secondary NOT GIVENUNK [place] Insurance:SELF PAY [facility] Number: Effective Repository Date:2018-02-21
== END ==
PROVIDERS: Family Provider Family Medicine; PCP Family Medicine; Visit Provider Urology
DX: C67.9 Malignant neoplasm of bladder, unspecified (principal)
CPT/HCPCS: 88108; 88313

== ENCOUNTER → 2018-08-28 15:22 | Outpatient (CLI) | payer OTHER, SELFPAY ==
[2018-08-24 11:43] VITALS: BMI 27.0
== END ==
PROVIDERS: Family Provider Family Medicine; PCP Family Medicine; Referring Provider Urology; Visit Provider Urology
DX: C67.9 Malignant neoplasm of bladder, unspecified (principal)

== ENCOUNTER → 2018-09-05 08:43 | Outpatient (CLI) | payer OTHER, SELFPAY ==
[2018-08-24 11:43] VITALS: BMI 27.0
[2018-09-05 12:43] LABS: Cholesterol 265 mg/dL (200); High Density Lipoprotein 51 mg/dL; Triglycerides 102 mg/dL; Very Low Density Lipoprotein 20 mg/dL (5-40)
== END ==
PROVIDERS: Family Provider Family Medicine; PCP Family Medicine; Visit Provider Family Medicine
DX: Z00.00 Encounter for general adult medical examination without abnormal findings (principal)
CPT/HCPCS: 36415; 80061

== ENCOUNTER → 2018-11-22 10:04 | Outpatient (CLI) | payer MEDICARE, BC, OTHER, SELFPAY ==
[2018-11-22 12:45] LABS: Erythrocyte Sedimentation Rate 7 mm/hr (0-20)
[2018-11-22 12:54] LABS: BUN 21 mg/dL (7-18); Creatinine, Serum 1.41 mg/dL (0.70-1.30); Glucose 89 mg/dL (74-106)
[2018-11-22 12:55] LABS: Anion Gap 9 (5-15); BUN/Creat Ratio 14.9 RATIO (10-20); CPK Total, Creatine Kinase 66 U/L (39-308); Calcium,Total 9.3 mg/dL (8.5-10.1); Chloride 110 mmol/L (98-107); EST Glomerular Filtration Rate 54 mL/min (>60); Est Glom Filt Rate - Afr Amer 65 mL/min (>60); Potassium 4.5 mmol/L (3.5-5.1); Sodium Level 143 mmol/L (136-145)
[2018-11-23 14:07] LABS: CHOLESTEROL TOTAL 278 mg/dL (100-199); HDL-C 53 mg/dL (>39); HDL-P TOTAL 35.8 umol/L (>=30.5); SMALL LDL-P 1485 nmol/L (<=527); TRIGLYCERIDES 144 mg/dL (0-149)
[2018-11-25 09:07] LABS: INSULIN RESISTANCE SCORE 49 (<=45); LDL SIZE 20.8 nm (>20.5); LDL-C 196 mg/dL (0-99); LDL-P 2749 nmol/L (<1000)
== END ==
PROVIDERS: Family Provider Family Medicine; PCP Family Medicine; Visit Provider Family Medicine
DX: I12.9 Hypertensive chronic kidney disease with stage 1 through stage 4 chronic kidney disease, or unspecified chronic kidney disease (principal); N18.3 Chronic kidney disease, stage 3 (moderate); E78.5 Hyperlipidemia, unspecified; M79.10 Myalgia, unspecified site
CPT/HCPCS: 36415; 80048; 80061; 82550; 83704; 85652

== ENCOUNTER → 2018-11-27 17:03 | Outpatient (CLI) | payer MEDICARE, OTHER, SELFPAY ==
--- NOTE | 2018-11-27 17:09 | MRI_ITS ---
STUDY: MRI LUMBAR SPINE WITHOUT CONTRAST REASON FOR EXAM: Male, 62 years old. Low back pain. Bilateral leg pain. TECHNIQUE: Standardized fat and water weighted pulse sequences were obtained in the sagittal and axial planes. COMPARISON: None. Correlation with CT scan dated January 20, 2016. FINDINGS: Lumbar straightening. Minimal dextroscoliosis. Conus medullaris terminates normally at the T12 level. No acute fracture lines. No dislocation. No cortical destruction. Additional visualized lower thoracic disc bulges without significant central canal narrowing. T12-L1: Normal endplates. Shallow disc bulge without central canal narrowing. Normal bilateral facet joints. Normal central canal and bilateral lateral recesses. Normal bilateral intervertebral neural foramina. L1-2: Mild endplate spondylosis. Disc bulge with mild central canal narrowing. Facet joint arthrosis. Normal bilateral lateral recesses. Bilateral neural foraminal narrowing without impingement. Grade 1 degenerative spondylolisthesis. L2-3: Mild endplate spondylosis. Disc bulge with mild central canal narrowing. Facet joint arthrosis. Normal bilateral lateral recesses. Bilateral neural foraminal narrowing without impingement. Grade 1 degenerative spondylolisthesis. L3-4: Normal endplates. Disc bulge with mild central canal narrowing. Facet joint arthrosis. Normal bilateral lateral recesses. Left neural foraminal narrowing without impingement. L4-5: Moderate endplate spondylosis with degenerative/reactive edema. Disc bulge with moderate/severe central canal narrowing. Facet joint arthrosis. Bilateral lateral recess narrowing with impingement. Bilateral neural foraminal narrowing with impingement. L5-S1: Mild endplate spondylosis. Disc bulge with mild central canal narrowing. Facet joint arthrosis. Normal bilateral lateral recesses. Bilateral neural foraminal narrowing with impingement on the right. Vacuum phenomenon. Sacrum intact. Left renal cyst (axial image 23 series 5). Normal aorta. Normal paraspinal muscles. MRI/Spine Lumbar (Routine) IMPRESSION: Extensive multilevel intervertebral disc disease with canal narrowing most severe at L4-5 Multilevel neural foraminal narrowing with impingement of the bilateral L4 and right L5 nerve roots Bilateral lateral recess narrowing with impingement of the bilateral descending L5 nerve roots Multilevel moderate osseous degenerative changes, as above Electronically Signed: Perez Arguello DO at 11:42 EDT Tel , Service support ,
== END ==
PROVIDERS: Family Provider Family Medicine; PCP Family Medicine; Referring Provider Family Medicine; Visit Provider Family Medicine
DX: M48.061 Spinal stenosis, lumbar region without neurogenic claudication (principal)
CPT/HCPCS: 72148

== ENCOUNTER → 2018-12-27 14:33 | Outpatient (CLI) | payer SELFPAY ==
--- NOTE | 2018-12-27 14:36 | CT_ITS ---
STUDY: CARDIAC CALCIUM SCORING - CT CHEST REASON FOR EXAM: Male, 63 years old. Coronary artery disease. RADIATION DOSAGE (If Supplied By Facility): CTDIvol = ( 12.19 ) mGy, DLP = ( 219.42 ) mGycm TECHNIQUE: Axial non-enhanced images were acquired through the heart for the sole purpose of measuring coronary artery calcium. Individualized dose optimization techniques were used for this CT. COMPARISON: None. FINDINGS: Please see the patient's medical record for a personalized calcium score. The heart is normal in size. There is no pericardial effusion. The visualized lungs are clear. CT/CCTA Calcium Scoring IMPRESSION: Please see the patient's medical record for a person of this calcium score. Please go to: [email or web address] , for a description of the calculator. Electronically Signed: Kian Catalan, at 9:06 EDT Tel , Service support ,
--- NOTE | 2018-12-27 14:36 | CT_ITS ---
STUDY: CARDIAC CALCIUM SCORING - CT CHEST REASON FOR EXAM: Male, 63 years old. Coronary artery disease. RADIATION DOSAGE (If Supplied By Facility): CTDIvol = ( 12.19 ) mGy, DLP = ( 219.42 ) mGycm TECHNIQUE: Axial non-enhanced images were acquired through the heart for the sole purpose of measuring coronary artery calcium. Individualized dose optimization techniques were used for this CT. COMPARISON: None. FINDINGS: Please see the patient's medical record for a personalized calcium score. The heart is normal in size. There is no pericardial effusion. The visualized lungs are clear. CT/Limited Chest CT w/CCTA IMPRESSION: Please see the patient's medical record for a person of this calcium score. Please go to: [email or web address] , for a description of the calculator. Electronically Signed: Kian Catalan, at 9:06 EDT Tel , Service support ,
[2018-12-27 14:47] VITALS: BP 99/65; PULSE 67; RESP 14; O2SAT 99; BMI 26.6
--- NOTE | 2018-12-30 08:39 | CA.SCORE ---
Calcium Scoring Date of Study:: 12/27/18 Coronary Calcium Scoring: High-resolution Computed Tomographic imaging of the chest was performed on [ ], with particular attention paid to the coronary arteries. Images from the examination were analyzed for the presence and extent of coronary artery calcification , using coronary calcium quantification software. The patient tolerated the procedure well and there were no complications. The results of the coronary calcification analysis are provided below. - Findings Left Main (LM): 0 Left Anterior Descending (LAD): 28.6 Left Circumflex (LCX): 0 Right Coronary Artery (RCA): 81.9 Total Agatston Score: 110.5 Percentile Rankin - Conclusion Calcium Scoring Interpretation: Calcium Score Interpretation 0 No identifiable atherosclerotic plaque. Very low cardiovascular disease risk. <5% chance of presence coronary artery disease A Negative Examination 1-10 Minimal Plaque burden. Significant coronary artery disease very unlikely. 11-100 Mild plaque burden. Likely mild or minimal coronary atherosclerosis. 101-400 Moderate plaque burden Moderate non-obstructive coronary artery disease highly likely. Over 400 Extensive plaque burden. High likelihood of at least one significant coronary stenosis (>50% diameter) Calcium Score: 101 - 400 Moderate non-obstructive coronary artery disease highly like - The above is suggestive of mild to moderate nonobstructive coronary artery disease present. A full evaluation of cardiac risk should include assessment of all conventional risk factors.
== END ==
PROVIDERS: Family Provider Family Medicine; PCP Family Medicine; Referring Provider Family Medicine; Visit Provider Family Medicine
DX: I11.9 Hypertensive heart disease without heart failure (principal); E78.5 Hyperlipidemia, unspecified
CPT/HCPCS: 75571; 76380

== ENCOUNTER → 2019-02-20 13:39 | Outpatient (CLI) | payer MEDICARE, OTHER, SELFPAY ==
[2019-01-23 14:24] VITALS: BMI 26.6
[2019-02-20 16:01] LABS: PSA,Total - Annual Screen < 0.01 ng/mL (0.00-4.00)
== END ==
PROVIDERS: Family Provider Family Medicine; PCP Family Medicine; Referring Provider Urology; Visit Provider Urology
DX: Z12.5 Encounter for screening for malignant neoplasm of prostate (principal)
CPT/HCPCS: 36415; 84153; G0103

== ENCOUNTER → 2019-05-01 10:10 | Outpatient (CLI) | payer MEDICARE, OTHER, SELFPAY ==
[2019-01-23 14:24] VITALS: BMI 26.6
--- NOTE | 2019-05-01 10:15 | RAD_ITS ---
STUDY: X-RAY - PELVIS AND BILATERAL HIPS REASON FOR EXAM: Male, 63 years old. Bilateral hip pain and stiffness TECHNIQUE: AP view of the pelvis.? 2 views of the right hip, and 2 views of the left hip were obtained. COMPARISON: None. FINDINGS: There is a non-specific bowel gas pattern. Normal visualized soft tissue structures. Normal bilateral iliac wings, sacroiliac joints and visualized sacrum. Normal bilateral superior and inferior pubic rami. Normal pubic symphysis. Normal bilateral ischial tuberosities. There are osteoarthritic changes of the right femoral head with marginal osteophyte formation. There is cortical sclerosis with sub-cortical cyst formation of the right acetabulum. There is severe articular joint space narrowing of the right hip. There are osteoarthritic changes of the left femoral head with marginal osteophyte formation. There is cortical sclerosis with sub-cortical cyst formation of the left acetabulum. There is severe articular joint space narrowing of the left hip. RAD/Hips B/L min 2 views w/ Pelvis IMPRESSION: Severe bilateral hip degenerative changes Electronically Signed: Scott Castro DO at 16:50 EDT Tel , Service support ,
== END ==
PROVIDERS: Family Provider Family Medicine; PCP Family Medicine; Referring Provider Family Medicine; Visit Provider Family Medicine
DX: M25.551 Pain in right hip (principal); M25.552 Pain in left hip; M25.60 Stiffness of unspecified joint, not elsewhere classified
CPT/HCPCS: 73521

== ENCOUNTER → 2019-05-02 10:06 | Outpatient (CLI) | payer MEDICARE, OTHER, SELFPAY ==
[2019-01-23 14:24] VITALS: BMI 26.6
--- NOTE | 2019-05-02 10:09 | RAD_ITS ---
STUDY: X-RAY - LUMBAR SPINE REASON FOR EXAM: Male, 63 years old. Pain in the lower back. TECHNIQUE: 5 view(s) of the lumbar spine were obtained. COMPARISON: Abdomen and pelvic CT exam from January 20, 2016. FINDINGS: Reduced lumbar lordosis. Slight dextrocurvature of the lower lumbar spine. Slight retrolisthesis of L2. Normal vertebral body height. Advanced disc narrowing and spondylitic endplate changes at L1-2, L2-3, L4-5 and L5-S1 with moderate changes at L3-4. The most severely narrowed level is L4-5. Degenerative facet changes primarily at L3-4, L4-5 and L5-S1. The soft tissue structures are unremarkable. RAD/L/S Spine Min 4 Views IMPRESSION: Reduced lumbar lordosis and a slight dextro curve of the lower lumbar spine with advanced degenerative disc and joint changes as stated above. No substantial changes from prior exam of January 20, 2016 Electronically Signed: Roxann Dorado MD at 16:57 EDT , Service support ,
== END ==
PROVIDERS: Family Provider Family Medicine; PCP Family Medicine; Referring Provider Family Medicine; Visit Provider Family Medicine
DX: M54.5 Low back pain (principal); Z85.46 Personal history of malignant neoplasm of prostate
CPT/HCPCS: 72110

== ENCOUNTER 2019-05-08 11:30 | Outpatient (RCR) | payer MEDICARE, OTHER, SELFPAY ==
[2019-01-23 14:24] VITALS: BMI 26.6
--- NOTE | 2019-04-24 15:59 | HP.PTEVAL_ITS ---
Patient's Visit Information ENMANUEL A SCALE is a 63 year old M referred to Physical Therapy by Edwar Warner DO with a diagnosis of . Date of Evaluation: 04/24/19 Physical Therapist: Too Stahl PT, Cert MDT, OCS - Visit Plan Frequency: 2x /Week Duration: 4 Weeks Plan: PT INTERVENTIONS AQUATIC PROGAM ROM/FLEXABLITY/STRENGTHENING RIGHT > LEFT HIP,DSL ,LUMBAR ROM,THEN RECHECK AFTER 3 WKS. PATIENT COULD BENIFIT FROM X-RAY RIGHT HIP - Subjective Findings: This 63 y/o male presnets to physical therapy lumbar pain and hip pain. Patient has symmmtrical lumbar pain along with leg pain,also symmptoms in groin area.Patient pain is descriped ache in back and thighs but soreness in groin area. Patient has weakness and stiffness biateral hips example lifting legs to put on socks and shoes as well as lifting leg to get into car.Aggravating lifting,bending,elevating from chair,sitting and standing and walking for extended period of time. Patient also reports pain is worse with yard work mowing grass housework tasks. Alleviating factors res. Patient had MRI and x-rays see for results. Patient occassionally parathesia/tingling in legs. Coughing/sneezing-.Bowel/bladder -. Patient symptoms affect QOL and funtion. P atient has seen chiropractor. SOCAIL: . VOCATION: retired - Pain Bilateral Back Pain Intensity (Out of 10): 5 Pain Intensity Range: 10 Bilateral Lower Extremity Pain Intensity (Out of 10): 5 Pain Intensity Range: 10 Bilateral Hip Pain Intensity (Out of 10): 5 Pain Intensity Range: 10 - Objective POSTURE: mild foward posture. GAIT: ambulates with antalgic gait slow madeline R>L during left. NEURO: denies parathesia/tingling,reflexes L3-4,L4-5,L5-S1, 1/3. PALAPTION:unremarkable. SYMMTRIES: align. PROM: Right ER 25 degrees,IR 0 degrees,left 15 degrees IR ,ER 30 degrees,abduction 25 degrees right,hip flexion 80 degrres right left 90 degrees patient has pain R>L. MMT: quads/hams 4-/5 hip flexion/abd 3-/5 R,left 3+/5 - Special Tests L/S Slump test left side: Negative L/S Slump test right side: Negative L/S Left Straight Leg Raise: Negative L/S Right Straight Leg Raise: Negative Lumbar Standing: Flexion - Mechanical Response: No effect Lumbar Standing: Flexion - Symptoms During Testing: No effect Lumbar Standing: Flexion - Symptoms After Testing: No effect Lumbar Standing: Extension - Mechanical Response: No effect Lumbar Standing: Extension - Symptoms During Testing: No effect Lumbar Standing: Extension - Symptoms After Testing: No effect R Hip Scour: Positive R Hip Trendelenberg - Glut Medius: Positive R Hip Stephanie - IT Band: Negative L Hip Scour: Positive - Goals Goal 1:: Independant with Aquatic PROGRAM and HEP. Goal Time Frame: 4-6 Weeks Goal 2:: Decrease hip and back pain by 40-50% to improve function with walking and standing. Goal Time Frame: 4-6 Weeks Goal 3:: Patient to improve ROM of right hip by 5-10 degrees to improve function. Goal Time Frame: 4-6 Weeks Goal 4:: Patient to increase strength of right hip 3+/5 to improve function with walking and styanding. Goal Time Frame: 4-6 Weeks Goal 5:: Pateint improve LFES score by 5-10 points to improve QOL. Goal Time Frame: 4-6 Weeks - Rehabilitation Potential Physical Therapy Diagnosis: This patient has right hip pain R>L with possble DJD due to poor ROM all panes with pain weakness hip flexors and hip abd specially r ight along with back pain impairs walking and standing causes problems with housework activities. Rehabilitation Potential: Good - Anticipated Interventions Patient/Client Instruction: Educate patient on: Condition, Plan of Care For the Purpose of:: To decrease pain, To increase ROM, To improve muscle performance and motor function, To improve ability to perform ADL's, To increase tolerance to activity/condition/position, To improve ability of physical actions for home/community/work/leisure, To improve gait and locomotor functions, To improve health of tissue, To decrease soft tissue restriction, To increase flexibility/ROM, To improve endurance, To improve ability to perform tasks related to life management Therapeutic Exercise to Include: Strength training, Body mechanics, Postural training, Flexibilty training, In an aquatic setting, Dynamic Lumbar Stabilization Comment: HIP/KNEE For the Purpose of:: To decrease pain, To increase ROM, To improve muscle performance and motor function, To improve ability to perform ADL's, To increase tolerance to activity/condition/position, To improve ability of physical actions for home/community/work/leisure, To improve gait and locomotor functions, To improve health of tissue, To decrease soft tissue restriction, To increase flexibility/ROM, To reduce risk of recurrence, To improve ability to perform tasks related to life management TENS: Yes IF ES: Yes Cryotherapy (ice pack, ice massage): Yes Thermo therapy (hot pack): Yes Ultrasound (thermal/non thermal): Yes For the Purpose of:: To decrease pain, To increase ROM, To improve health of tissue, To decrease soft tissue restriction Thank you for the opportunity to evaluate your patient. For Medicare and Medicare HMO plans, please review the plan of care and approve it. It will need to be FAXED BACK to us at [phone] for Medicare purposes. For Medicare only, by signing this I certify the plan of care. Please let me know if there are questions or concerns regarding this plan of care. Physician Signature:____ Date:
--- NOTE | 2019-04-24 17:08 | HP.PTEVAL_ITS ---
Patient's Visit Information ENMANUEL A SCALE is a 63 year old M referred to Physical Therapy by Edwar Warner DO with a diagnosis of INTERVERTBRAL DISC DISORDER RADICULOPATHYMSPINAL STENOSIS. Date of Evaluation: 04/24/19 Physical Therapist: Too Stahl PT, Cert MDT, OCS - Visit Plan Frequency: 2x /Week Duration: 4 Weeks Plan: PT INTERVENTIONS AQUATIC PROGAM ROM/FLEXABLITY/STRENGTHENING RIGHT > LEFT HIP,DSL ,LUMBAR ROM,THEN RECHECK IN 3 WKKS. PATIENT COULD BENIFIT FROM X-RAY RIGHT HIP - Subjective Findings: This 63 y/o male presnets to physical therapy lumbar pain and hip pain. Patient has symmmtrical lumbar pain along with leg pain,also symmptoms in groin area.Patient pain is descriped ache in back and thighs but soreness in groin area. Patient has weakness and stiffness biateral hips example lifting legs to put on socks and shoes as well as lifting leg to get into car.Aggravating lifting,bending,elevating from chair,sitting and standing and walking for extended period of time. Patient also reports pain is worse with yard work mowing grass housework tasks. Alleviating factors res. Patient had MRI and x-rays see for results. Patient occassionally parathesia/tingling in legs. Coughing/sneezing-.Bowel/bladder -. Patient symptoms affect QOL and funtion. Patient has seen chiropractor. SOCAIL: . VOCATION: retired - Pain Bilateral Back Pain Intensity (Out of 10): 5 Pain Intensity Range: 10 Bilateral Lower Extremity Pain Intensity (Out of 10): 5 Pain Intensity Range: 10 Bilateral Hip Pain Intensity (Out of 10): 5 Pain Intensity Range: 10 - Objective POSTURE: mild foward posture. GAIT: ambulates with antalgic gait slow madeline R>L during left. NEURO: denies parathesia/tingling,reflexes L3-4,L4-5,L5-S1, 1/3. PALAPTION:unremarkable. SYMMTRIES: align. PROM: Right ER 25 degrees,IR 0 degrees,left 15 degrees IR ,ER 30 degrees,abduction 25 degrees right,hip flexion 80 degrres right left 90 degrees patient has pain R>L. MMT: quads/hams 4-/5 hip flexion/abd 3-/5 R,left 3+/5 - Special Tests L/S Slump test left side: Negative L/S Slump test right side: Negative L/S Left Straight Leg Raise: Negative L/S Right Straight Leg Raise: Negative Lumbar Standing: Flexion - Mechanical Response: No effect Lumbar Standing: Flexion - Symptoms During Testing: No effect Lumbar Standing: Flexion - Symptoms After Testing: No effect Lumbar Standing: Extension - Mechanical Response: No effect Lumbar Standing: Extension - Symptoms During Testing: No effect Lumbar Standing: Extension - Symptoms After Testing: No effect R Hip Scour: Positive R Hip Trendelenberg - Glut Medius: Positive R Hip Stephanie - IT Band: Negative L Hip Scour: Positive - Goals Goal 1:: Independant with Aquatic PROGRAM and HEP. Goal Time Frame: 4-6 Weeks Goal 2:: Decrease hip and back pain by 40-50% to improve function with walking and standing. Goal Time Frame: 4-6 Weeks Goal 3:: Patient to improve ROM of right hip by 5-10 degrees to improve function. Goal Time Frame: 4-6 Weeks Goal 4:: Patient to increase strength of right hip 3+/5 to improve function with walking and styanding. Goal Time Frame: 4-6 Weeks Goal 5:: Pateint improve LFES score by 5-10 points to improve QOL. Goal Time Frame: 4-6 Weeks Goal 6:: Patient improve lumbar ROM for function of recovery. Goal Time Frame: 4-6 Weeks - Rehabilitation Potential Physical Therapy Diagnosis: This patient has right hip pain R>L with possble DJD due to poor ROM all panes with pain weakness hip flexors and hip abd specially right along with back pain impairs walking and standing causes problems with housework activities. Rehabilitation Potential: Good - Anticipated Interventions Patient/Client Instruction: Educate patient on: Condition, Plan of Care For the Purpose of:: To decrease pain, To increase ROM, To improve muscle performance and motor function, To improve ability to perform ADL's, To increase tolerance to activity/condition/position, To improve ability of physical actions for home/community/work/leisure, To improve gait and locomotor functions, To improve health of tissue, To decrease soft tissue restriction, To increase flexibility/ROM, To improve endurance, To improve ability to perform tasks related to life management Therapeutic Exercise to Include: Strength training, Body mechanics, Postural training, Flexibilty training, In an aquatic setting, Dynamic Lumbar Stabilization Comment: HIP/KNEE For the Purpose of:: To decrease pain, To increase ROM, To improve muscle performance and motor function, To improve ability to perform ADL's, To increase tolerance to activity/condition/position, To improve ability of physical actions for home/community/work/leisure, To improve gait and locomotor functions, To improve health of tissue, To decrease soft tissue restriction, To increase flexibility/ROM, To reduce risk of recurrence, To improve ability to perform tasks related to life management TENS: Yes IF ES: Yes Cryotherapy (ice pack, ice massage): Yes Thermo therapy (hot pack): Yes Ultrasound (thermal/non thermal): Yes For the Purpose of:: To decrease pain, To increase ROM, To improve health of tissue, To decrease soft tissue restriction Thank you for the opportunity to evaluate your patient. For Medicare and Medicare HMO plans, please review the plan of care and approve it. It will need to be FAXED BACK to us at [phone] for Medicare purposes. For Medicare only, by signing this I certify the plan of care. Please let me know if there are questions or concerns regarding this plan of care. Physician Signature: Date:
--- NOTE | 2019-06-26 16:15 | HP.PT.NRP ---
HP - Discharge Summary (1) - Patient Information ENMANUEL Aurelio PHAM was seen in my office for initial evaluation on 04/24/19. The following Plan of Care was established for this patient: Initial Frequency: 2x /Week Initial Duration: 4 Weeks - Anticipated Interventions Patient/Client Instruction: Educate patient on: Condition, Plan of Care For the Purpose of:: To decrease pain, To increase ROM, To improve muscle performance and motor function, To improve ability to perform ADL's, To increase tolerance to activity/condition/position, To improve ability of physical actions for home/community/work/leisure, To improve gait and locomotor functions, To improve health of tissue, To decrease soft tissue restriction, To increase flexibility/ROM, To improve endurance, To improve ability to perform tasks related to life management Therapeutic Exercise to Include: Strength training, Body mechanics, Postural training, Flexibilty training, In an aquatic setting, Dynamic Lumbar Stabilization For the Purpose of:: To decrease pain, To increase ROM, To improve muscle performance and motor function, To improve ability to perform ADL's, To increase tolerance to activity/condition/position, To improve ability of physical actions for home/community/work/leisure, To improve gait and locomotor functions, To improve health of tissue, To decrease soft tissue restriction, To increase flexibility/ROM, To reduce risk of recurrence, To improve ability to perform tasks related to life management TENS: Yes IF ES: Yes Cryotherapy (ice pack, ice massage): Yes Thermo therapy (hot pack): Yes Ultrasound (thermal/non thermal): Yes For the Purpose of:: To decrease pain, To increase ROM, To improve health of tissue, To decrease soft tissue restriction This patient was last seen in our office . Pertinent comments regarding their Physical therapy will appear below: Patient seen for PT for lumbar and hip pain with Aquatic PT. Patient had THR thus is d/c. At this point I will be discontinuing this patient from physical therapy. I would be happy to see this patient again in the future if found appropriate by the physician. Thank you! Too Stahl, PT, Cert MDT, OCS
== END 2019-05-08 19:00 | disposition home or self-care (01) ==
LOC: PT 11:30
PROVIDERS: Family Provider Family Medicine; PCP Family Medicine; Referring Provider Family Medicine; Visit Provider Family Medicine
DX: M51.16 Intervertebral disc disorders with radiculopathy, lumbar region (principal); M51.36 Other intervertebral disc degeneration, lumbar region; M48.061 Spinal stenosis, lumbar region without neurogenic claudication
CPT/HCPCS: 97110; 97113; 97162

== ENCOUNTER → 2019-05-27 08:22 | Outpatient (CLI) | payer MEDICARE, OTHER, SELFPAY ==
[2018-12-27 14:47] VITALS: BMI 26.6
[2019-01-23 14:24] VITALS: BMI 26.6
[2019-05-27 12:50] LABS: Absolute Lymphocyte Count 1.33 X10^3/uL (0.83-4.51); Absolute Neutrophil Count 3.1 X10^3/uL (2.0-7.7); Basophil# 0.03 X10^3/uL; Basophil% 0.6 % (0-1); Eosinophil# 0.12 X10^3/uL; Eosinophils% 2.4 % (0-5); Hematocrit 42.1 % (40-54); Hemoglobin 13.5 g/dL (13.0-16.5); Lymphocyte # 1.33 X10^3/ul (4.0); Lymphocyte % 26.1 % (19-41); Mean Corp Hgb Conc 32.1 g/dL (32-36); Mean Corpuscular Hgb 30.4 pg (27.0-32.0); Mean Corpuscular Volume 94.8 fL (80-94); Mean Platelet Vol. 9.6 fl (6.2-12.0); Monocyte# 0.44 X10^3/uL; Monocyte% 8.6 % (0-10); NRBC Flagged by Analyzer 0 % (0-5); Neutrophil # 3.14 X10^3/uL (2.7-7.7); Neutrophil % 61.7 % (47-70); Platelet Count 330 K/mm3 (150-450); RBC Distribution Width SD 45.1 fl (35.1-43.9); Red Blood Count 4.44 M/mm3 (4.6-6.2); White Blood Count 5.1 K/mm3 (4.4-11.0)
[2019-05-27 13:10] LABS: Vitamin D,25 Hydroxy 62.9 ng/mL (29.95-100.01)
[2019-05-27 13:19] LABS: Microalbumin,Random Urine < 5.0 mg/L (NO RANGE EST.)
[2019-05-27 13:23] LABS: PTHIN 39.3 pg/mL (18.4-80.1)
[2019-05-27 13:29] LABS: ALB/GLOB Ratio 1.2 RATIO (0.9-2.4); AST(SGOT) 4 U/L (15-37); Alanine Aminotransfer ALT/SGPT 23 U/L (16-61); Albumin, Serum 3.9 g/dL (3.2-5.0); Alkaline Phosphatase 68 U/L (45-117); Anion Gap 7 (5-15); BUN 24 mg/dL (7-18); BUN/Creat Ratio 18.5 RATIO (10-20); Chloride 111 mmol/L (98-107); Cholesterol 216 mg/dL (200); EST Glomerular Filtration Rate 59 mL/min (>60); Est Glom Filt Rate - Afr Amer 71 mL/min (>60); Globulin 3.3 g/dL (2.2-4.2); Glucose 92 mg/dL (74-106); High Density Lipoprotein 51 mg/dL; Phosphorus 3.5 mg/dL (2.5-4.9); Potassium 4.5 mmol/L (3.5-5.1); Protein, Total 7.2 g/dL (6.4-8.2); Sodium Level 142 mmol/L (136-145); Triglycerides 90 mg/dL; Very Low Density Lipoprotein 18 mg/dL (5-40)
[2019-05-27 18:51] LABS: T4 Free Direct 1.06 ng/dL (0.76-1.46); Vitamin B12 495 pg/mL (211-911)
== END ==
PROVIDERS: Family Provider Family Medicine; PCP Family Medicine; Visit Provider Family Medicine
DX: I25.10 Atherosclerotic heart disease of native coronary artery without angina pectoris (principal); I12.9 Hypertensive chronic kidney disease with stage 1 through stage 4 chronic kidney disease, or unspecified chronic kidney disease; N18.3 Chronic kidney disease, stage 3 (moderate); E78.5 Hyperlipidemia, unspecified; R53.83 Other fatigue; Z51.81 Encounter for therapeutic drug level monitoring
CPT/HCPCS: 36415; 80053; 80061; 82043; 82306; 82570; 82607; 83970; 84100; 84439; 84443; 85025

== ENCOUNTER → 2019-08-08 13:49 | Outpatient (CLI) | payer MEDICARE, OTHER, SELFPAY ==
[2019-01-23 14:24] VITALS: BMI 26.6
[2019-08-08 16:15] LABS: PSA,Total- Diagnostic < 0.01 ng/mL (0.0-4.0)
== END ==
PROVIDERS: Family Provider Family Medicine; PCP Family Medicine; Referring Provider Urology; Visit Provider Urology
DX: Z85.46 Personal history of malignant neoplasm of prostate (principal); Z85.51 Personal history of malignant neoplasm of bladder
CPT/HCPCS: 36415; 84153

== ENCOUNTER → 2019-08-11 12:21 | Outpatient (CLI) | payer MEDICARE, OTHER, SELFPAY ==
[2019-01-23 14:24] VITALS: BMI 26.6
--- NOTE | 2019-08-11 | FLU_PTH ---
PATIENT: ENMANUEL PHAM LOC: [facility] U#:[id number] AGE/SX: 69/M ROOM: RE08/11/[address]: Dr. Heriberto Sherman MD : [id number] BED: DIS: SPEC #: [id number] RECD: 08/11/19 14:55 STATUS: KELLEY NICO #: [id number] VINITA: 08/11/19 00:[address]: Heriberto Sherman DEPT: CYTOLOGY RECD BY: Petrona De ENTERED: 08/11/19 14:55 SP TYPE: Fluid OTHR DR: Dr. Edwar Warner, DO Tissues: Urine Procedures: Special Stain Group II Cytospin Fluid HEADER OPERATION: Not noted PRE-OP DIAGNOSIS: Malignant neoplasm of bladder TISSUE SUBMITTED: Urine for cytology DIAGNOSIS CYTOLOGY Urine for cytology (cytospin): Rare atypical urothelial cells present. See comment. AM:alvino 08/12/19 COMMENT The findings are nonspecific and could represent a variety of conditions including infection, urolithiasis, instrumentation and low grade urothelial neoplasm. Clinical correlation is necessary. CYTOLOGY STUDY Slides are reviewed. CYTOLOGY GROSS Received is 60 ml of hazy yellow fluid labeled with the patient's name and and designated per the requisition as urine. Submitted for cytology preparation. / alvino 08/11/19 TC:? CPT: 78882
[2019-08-11 12:28] LABS: Cytology, Body Fluid / CSF SEE PATHOLOGY REPORT
== END ==
PROVIDERS: Family Provider Family Medicine; PCP Family Medicine; Referring Provider Urology; Visit Provider Urology
DX: Z85.51 Personal history of malignant neoplasm of bladder (principal); Z85.46 Personal history of malignant neoplasm of prostate
CPT/HCPCS: 88108; 88305; 88313

== ENCOUNTER 2019-08-25 12:00 | Outpatient (RCR) | payer MEDICARE, OTHER, SELFPAY ==
[2019-01-23 14:24] VITALS: BMI 26.6
--- NOTE | 2019-07-28 12:07 | HP.PTEVAL_ITS ---
Patient's Visit Information ENMANUEL A SCALE is a 63 year old M referred to Physical Therapy by AURA LAI with a diagnosis of PRIMARY OSTEOARTHRITIS OF RIGHT HIP. Date of Evaluation: 07/28/19 Physical Therapist: Too Stahl, PT, Cert MDT, OCS - Visit Plan Frequency: 2x /Week Duration: 4 Weeks Plan: S/P FLORIAN ANTERIOR APROACH ON 07/17/19 PER PATIENT. AMBULATES WITH FWW WITH WBAT AND HIP PRECAUTIONS. PT INTERVENTIONS WITH ROM,STRENGTHENING QUAD/HAMS/HIP ,GAIT /BALANCE PROGRAM,FUNCTION STRENGTHENING - Subjective Findings: This 63 y/o male presents to physical therapy with s/p right FLORIAN. Patient has progressive DJD about 1 year,thus underwent s/p FLORIAN anterior approach on 07/17/19 done at [facility] by DR Bynum. Patient d/c 07/19/19 with fww WBAT . Patient RTD 1week. Denies parathesia/tingling. Patient has min pain. Patient denies parathesia/tingling. HOME SITUTation: 2 Story home with one step ,stays on 1st floor bed/bath on 1st floor. Patient hip replacement impairs ability to walk ,balance ,function with ADL'S.Pateint pain affects sleeping.Patient condtion affects affects QOL. SOCIAL: . VOCATION: retired - Pain Right Hip Pain Intensity (Out of 10): 0 Pain Intensity Range: 10 - Objective POSTURE: mild foward posture. GAIT: mild foward posture decrease stance time RL E with decrease step length with fww. NEURO: inact. SKIN: inscion well approximate. BALANCE: Fair+ with fww. AROM: flexion hip 80 degrees,hip abd 25 degrees,knee flexion 0-110 degrees. MMT: quads 3+/5,hams 4-/5,hipe flexion 2/5,abduction 2/5 ,ankle 4/5. STAIRS: one step at time - Goals Goal 1:: Independant with HEP. Goal Time Frame: 4-6 Weeks Goal 2:: Ambulate with cane with improve gait pattern reciprocal with equal stance time. Goal Time Frame: 4-6 Weeks Goal 3:: Improve dynamic balance to good- with cane Goal Time Frame: 4-6 Weeks Goal 4:: Patient increase strength of quads/hams 4/5,hip flexion 4-/5,abd 3+/5 to improve function. Goal Time Frame: 4-6 Weeks Goal 5:: Patient to improve LFES score by 10 points or > to improve QOL. Goal Time Frame: 4-6 Weeks Goal 6:: Patient to ascend/descend stairs with cane alteranting Goal Time Frame: 4-6 Weeks - Rehabilitation Potential Physical Therapy Diagnosis: This patient undwer went s/p THR with decrease ROM,strength,balance stairs ,thus impairs ADLS's and function thus benifit from skilled PT. Rehabilitation Potential: Good - Anticipated Interventions Patient/Client Instruction: Educate patient on: Condition, Plan of Care For the Purpose of:: To decrease pain, To increase ROM, To improve muscle performance and motor function, To improve ability to perform ADL's, To increase tolerance to activity/condition/position, To improve performance and independence with ADL's, To improve ability of physical actions for home/community/work/leisure, To improve gait and locomotor functions, To inc rease flexibility/ROM, To improve endurance, To improve balance, To assume or resume ADL's, To improve ability to perform tasks related to life management Therapeutic Exercise to Include: Strength training, Endurance training, Balance training, Gait and locomotor training, Active ROM Comment: HIP/KNNE For the Purpose of:: To decrease pain, To increase ROM, To improve muscle performance and motor function, To improve ability to perform ADL's, To increase tolerance to activity/condition/position, To improve ability of physical actions for home/community/work/leisure, To improve health of tissue, To decrease soft tissue restriction, To increase flexibility/ROM, To improve endurance, To improve balance, To improve safety with gait Cryotherapy (ice pack, ice massage): Yes For the Purpose of:: To decrease pain Thank you for the opportunity to evaluate your patient. For Medicare and Medicare HMO plans, please review the plan of care and approve it. It will need to be FAXED BACK to us at [phone] for Medicare purposes. For Medicare only, by signing this I certify the plan of care. Please let me know if there are questions or concerns regarding this plan of care. Physician Signature: Date:
--- NOTE | 2019-08-25 12:24 | HP.PTDCSUM ---
HP - PT D/C Summary It has been my pleasure to treat ENMANUEL PHAM under orders from AURA LAI, for the diagnosis of PRIMARY OSTEOARTHRITIS OF RIGHT HIP for a total of 9 visit(s). Discharge Date: 08/25/19 Please see the following information for a summary of their discharge status. - Subjective Subjective: Doing well ,,Ready for d/c Return to prior level of activity - Pain Right Hip Pain Intensity (Out of 10): 0 - Overall Improvement % Improvement: 90 - Objective Objective/Function: POSTURE: WFL. GAIT:reciprocal pattern. MMT: quads/hams 4/5,hip flexion 4-/5,hp abd 3+/5. STAIRS: ascend/desend 12 steps alteranating - Goals Goal 1:: Independant with HEP. Goal Progress: Goal Met Goal 2:: Ambulate with cane with improve gait pattern reciprocal with equal stance time. Goal Progress: Goal Met Goal 3:: Improve dynamic balance to good- with cane Goal Progress: Goal Met Goal 4:: Patient increase strength of quads/hams 4/5,hip flexion 4-/5,abd 3+/5 to improve function. Goal Progress: Goal Met Goal 5:: Patient to improve LFES score by 10 points or > to improve QOL. Goal Progress: Goal Met Goal 6:: Patient to ascend/descend stairs with cane alteranting Goal Progress: Goal Met - Plan Plan: d/c to hep - D/C Information If there are questions or concerns regarding this patient's physical therapy, please feel free to call me at [phone]. Thank you for the referral of this patient. Sincerely, Too Stahl, PT, Cert MDT, OCS
== END 2019-08-25 19:00 | disposition home or self-care (01) ==
LOC: PT 12:00
PROVIDERS: Family Provider Family Medicine; PCP Family Medicine
DX: M16.11 Unilateral primary osteoarthritis, right hip (principal)
CPT/HCPCS: 97110; 97162

== ENCOUNTER → 2020-04-29 13:57 | Outpatient (CLI) | payer MEDICARE, OTHER, SELFPAY ==
[2019-01-23 14:24] VITALS: BMI 26.6
[2020-04-29 16:56] LABS: Absolute Lymphocyte Count 1.22 X10^3/uL (0.83-4.51); Absolute Neutrophil Count 3.7 X10^3/uL (2.0-7.7); Basophil# 0.03 X10^3/uL; Basophil% 0.5 % (0-1); Eosinophil# 0.08 X10^3/uL; Eosinophils% 1.4 % (0-5); Hematocrit 39.2 % (40-54); Hemoglobin 12.7 g/dL (13.0-16.5); Lymphocyte # 1.22 X10^3/ul (4.0); Mean Corp Hgb Conc 32.4 g/dL (32-36); Mean Corpuscular Volume 92.7 fL (80-94); Mean Platelet Vol. 9.4 fl (6.2-12.0); Monocyte# 0.51 X10^3/uL; Monocyte% 9.2 % (0-10); NRBC Flagged by Analyzer 0 % (0-5); Neutrophil # 3.68 X10^3/uL (2.7-7.7); Neutrophil % 66.5 % (47-70); Platelet Count 352 K/mm3 (150-450); RBC Distribution Width CV 12.8 % (11.6-14.6); RBC Distribution Width SD 43.6 fl (35.1-43.9); Red Blood Count 4.23 M/mm3 (4.6-6.2); White Blood Count 5.5 K/mm3 (4.4-11.0)
[2020-04-29 17:12] LABS: ALB/GLOB Ratio 1.2 RATIO (0.9-2.4); AST(SGOT) 9 U/L (15-37); Alanine Aminotransfer ALT/SGPT 26 U/L (16-61); Albumin, Serum 4.1 g/dL (3.2-5.0); Alkaline Phosphatase 61 U/L (45-117); Anion Gap 5 (5-15); BUN 19 mg/dL (7-18); BUN/Creat Ratio 14.4 RATIO (10-20); Calcium,Total 8.8 mg/dL (8.5-10.1); Chloride 105 mmol/L (98-107); Cholesterol 223 mg/dL (200); Creatinine, Serum 1.32 mg/dL (0.70-1.30); EST Glomerular Filtration Rate 58 mL/min (>60); Est Glom Filt Rate - Afr Amer 70 mL/min (>60); Globulin 3.4 g/dL (2.2-4.2); Glucose 84 mg/dL (74-106); High Density Lipoprotein 49 mg/dL; Protein, Total 7.5 g/dL (6.4-8.2); Sodium Level 139 mmol/L (136-145); Triglycerides 119 mg/dL; Very Low Density Lipoprotein 24 mg/dL (5-40)
== END ==
PROVIDERS: PCP Family Medicine; Visit Provider Family Medicine
DX: I25.10 Atherosclerotic heart disease of native coronary artery without angina pectoris (principal); I12.9 Hypertensive chronic kidney disease with stage 1 through stage 4 chronic kidney disease, or unspecified chronic kidney disease; N18.3 Chronic kidney disease, stage 3 (moderate); E78.5 Hyperlipidemia, unspecified
CPT/HCPCS: 36415; 80053; 80061; 85025

== ENCOUNTER 2020-07-27 12:30 | Outpatient (RCR) | payer MEDICARE, OTHER, SELFPAY ==
[2019-01-23 14:24] VITALS: BMI 26.6
--- NOTE | 2020-07-07 14:07 | HP.PTEVAL_ITS ---
Patient's Visit Information ENMANUEL PHAM is a 64 year old M referred to Physical Therapy by Dr. Ghanshyam Bynum MD with a diagnosis of L FLORIAN 06/29/20. Date of Evaluation: 07/07/20 Physical Therapist: Cosme Llamas PT, ATC - Visit Plan Frequency: 2-3x /Week Duration: 4-6 Weeks Plan: L LE stretching and strengthening, balance and proprio, core stab ex's, nustep, and HEP - Subjective DOS: 06/29/20. Pt had a L FLORIAN performed using an anterior approach. Pt reports he is happy where he is at with his recovery at this time. Pt notes his complaint at this time is that his L LE is longer than his right which causes him LBP when he walks. Pt reports he had a R FLORIAN one year ago which is completely healed. Pt reports he really doesnt have much pain unless he sits or stands for a long period of time. No tingling or numbness at this time in L LE. Difficulty with sleep at this time secondary to being uncomfortable. Pt reports he has stairs at home, butnegotiates them one step at a time. Pt reports he is retired at this time. 0/10 pain at rest, 2/10 at worst (lying in bed for a long period of time). - Pain L FLORIAN Pain Intensity (Out of 10): 0 Pain Intensity Range: 2 - Objective Neuro: B LE sensation is WNL to light touch. B patellar reflex= 1/3. Observation: Incision is still healing. No signs of infection. ROM: B LE ROM is WFL with exception to L hip flex which is moderately limited. MMT: L LE is grossly 3-/5 and painful while R LE 5/5 throughout. Gait: Pt is able to ambulate over 1000' with cane and with slow cadance - Goals Goal 1:: Decrease L hip pain x 50% to aid with sleep Goal Time Frame: 4-6 Weeks Goal 2:: Increase L LE strength x 1 grade to aid with stair negotiation Goal Time Frame: 4-6 Weeks Goal 3:: Pt will be able to ambulate greater than 1000' without AD to aid with I in community ambulation Goal Time Frame: 4-6 Weeks Goal 4:: I with HEP Goal Time Frame: 4-6 Weeks - Rehabilitation Potential Rehabilitation Potential: Good - Anticipated Interventions Patient/Client Instruction: Educate patient on: Condition, Plan of Care For the Purpose of:: To improve self management Therapeutic Exercise to Include: Strength training, Endurance training, Balance training, Flexibilty training, Gait and locomotor training, Active ROM, Dynamic Lumbar Stabilization For the Purpose of:: To decrease pain, To increase ROM, To improve muscle performance and motor function Cryotherapy (ice pack, ice massage): Yes For the Purpose of:: To decrease pain Thank you for the opportunity to evaluate your patient. For Medicare and Medicare HMO plans, please review the plan of care and approve it. It will need to be FAXED BACK to us at [phone] for Medicare purposes. For Medicare only, by signing this I certify the plan of care. Please let me know if there are questions or concerns regarding this plan of care. Physician Signature: Date:
--- NOTE | 2020-09-01 08:14 | HP.PT.NRP ---
ENMANUEL PHAM was seen in my office for initial evaluation on 07/07/20. The following Plan of Care was established for this patient: Initial Frequency: 2-3x /Week Initial Duration: 4-6 Weeks Patient/Client Instruction: Educate patient on: Condition, Plan of Care For the Purpose of:: To improve self management Therapeutic Exercise to Include: Strength training, Endurance training, Balance training, Flexibilty training, Gait and locomotor training, Active ROM, Dynamic Lumbar Stabilization For the Purpose of:: To decrease pain, To increase ROM, To improve muscle performance and motor function Cryotherapy (ice pack, ice massage): Yes For the Purpose of:: To decrease pain This patient was last seen in our office . Pertinent comments regarding their Physical therapy will appear below: Pt was treated for 6 PT visits for L FLORIAN through the date of 07/27/20. Pt has not returned through this date and will be discontinued at this time. At this point I will be discontinuing this patient from physical therapy. I would be happy to see this patient again in the future if found appropriate by the physician. Thank you! Cosme Llamas, PT, ATC
== END 2020-07-27 19:00 | disposition home or self-care (01) ==
LOC: PT 12:30
PROVIDERS: PCP Family Medicine; Referring Provider Orthopaedic Surgery; Visit Provider Orthopaedic Surgery
DX: M16.12 Unilateral primary osteoarthritis, left hip (principal)
CPT/HCPCS: 97110; 97161

== ENCOUNTER → 2020-08-19 | Outpatient (CLI) | payer MEDICARE, OTHER, SELFPAY ==
[2019-01-23 14:24] VITALS: BMI 26.6
--- NOTE | 2020-08-19 15:00 | LES_PTH ---
PATIENT: ENMANUEL PHAM LOC: [facility] U#:[id number] AGE/SX: 64/M ROOM: RE08/19/[address]: Dr. Edwar Warner DO : 1955 BED: DIS: 08/19/2020 SPEC #: [id number] RECD: 08/19/20 17:31 STATUS: KELLEY NICO #: [id number] VINITA: 08/19/20 15:[address]: Edwar Warner DEPT: SURGICAL PATHOLOGY RECD BY: Tessa Bowman Tissues: Skin of lower extremity and hip Procedures: Surgery Specimen Level IV HEADER OPERATION: Biopsy PRE-OP DIAGNOSIS: Dark mole right thigh; rule out melanoma TISSUE SUBMITTED: 5 mm punch biopsy right lateral thigh MICROSCOPIC DIAGNOSIS Skin of right lateral thigh, punch biopsy: Consistent with solar lentigo. AM:alvino 08/23/20 MICROSCOPIC DESCRIPTION Slides are reviewed. GROSS DESCRIPTION Received is one container labeled with the patient's name and not further designated. The specimen consists of a piece of munoz-white skin measuring 0.3 x 0.3 x 0.1 cm. A munoz-brown lesion is noted in the center measuring 0.2 cm in greatest dimension. The entire specimen is submitted in one cassette. / NOELLE:alvino 08/20/20 TC:5 CPT: 11881
== END | disposition home or self-care (01) ==
LOC: LABSPEC 16:23
PROVIDERS: PCP Family Medicine; Visit Provider Family Medicine
DX: D22.71 Melanocytic nevi of right lower limb, including hip (principal)
CPT/HCPCS: 88305

== ENCOUNTER → 2020-08-27 07:16 | Outpatient (CLI) | payer MEDICARE, OTHER, SELFPAY ==
[2019-01-23 14:24] VITALS: BMI 26.6
--- NOTE | 2020-08-27 07:18 | CT_ITS ---
STUDY: CT ABDOMEN AND PELVIS WITH CONTRAST REASON FOR EXAM: Male, 64 years old. AB PAIN AND CRAMPING X 1 YEAR RADIATION DOSAGE (If Supplied By Facility): CTDIvol = ( 11.79 ) mGy, DLP = ( 870.54 ) mGycm TECHNIQUE: Transaxial images were obtained from the dome of the diaphragm to the symphysis pubis with oral contrast. Oral and amp; IV Readi-CAT and amp; 100mL Isovue-300 was administered. Sagittal and coronal images were reconstructed. Individualized dose optimization techniques were used for this CT. COMPARISON: Comparison is made with prior study dated 01/20/2016. FINDINGS: The visualized lung bases are unremarkable. The visualized portions of the heart are within normal limits. There is decreased attenuation of the liver consistent with steatosis. Stable 1.1 cm cyst in the posterior aspect of the right lobe of the liver. Normal gallbladder and extrahepatic biliary system. Normal spleen. Normal pancreas. Normal bilateral adrenal glands. Stable 3.5 cm cyst in the upper pole of the right kidney. Stable bilateral cortical thinning. Stable 2.17 m cyst in the lower pole of the left kidney. Incidental note is made of a left retroaortic renal vein. Normal visualized stomach. Normal small intestine. There are multiple colonic diverticula consistent with diverticulosis. The appendix is visualized and appears normal. There is atherosclerotic calcification of the abdominal aorta, without a demonstrated aneurysm. Normal inferior vena cava. Normal retroperitoneum. Normal urinary bladder. Normal abdominal wall. There are diffuse degenerative changes of the visualized lumbar spine. Status post bilateral total hip preplacement. CT/Abdomen/Pelvis WITH Contrast IMPRESSION: Fatty infiltration of the liver. Stable appearance of the bilateral renal cysts and a hepatic cyst. Electronically Signed: Leopoldo Salazar, at 12:53 EST , Service support ,
[2020-08-27 07:36] LABS: CREATININE FINGERSTICK 1.3 mg/dL (0.70-1.30)
== END ==
PROVIDERS: PCP Family Medicine; Referring Provider Family Medicine; Visit Provider Family Medicine
DX: R10.9 Unspecified abdominal pain (principal); R19.4 Change in bowel habit
CPT/HCPCS: 74177; Q9967

== ENCOUNTER → 2020-11-02 08:26 | Outpatient (CLI) | payer MEDICARE, BC, SELFPAY ==
[2019-01-23 14:24] VITALS: BMI 26.6
--- NOTE | 2020-11-02 | CYSPIN_PTH ---
PATIENT: ENMANUEL PHAM LOC: [facility] U#:[id number] AGE/SX: 69/M ROOM: RE11/02/[address]: Dr. Heriberto Sherman MD : 1955 BED: DIS: SPEC #: [id number] RECD: 11/02/20 08:34 STATUS: KELLEY REQ #: [id number] VINITA: 11/02/20 00:[address]: Heriberto Sherman DEPT: CYTOLOGY RECD BY: Petrona De ENTERED: 11/02/20 11:48 SP TYPE: CYSPIN FL OTHR DR: MD Dr. Edwar Jones, Tissues: Urine Procedures: Pap Stain (control) Special Stain Group II Cytospin Fluid HEADER OPERATION: Not noted PRE-OP DIAGNOSIS: Malignant neoplasm of bladder TISSUE SUBMITTED: Urine for cytology DIAGNOSIS CYTOLOGY Urine for cytology (cytospin): Rare atypical urothelial cells present. AM:alvino 11/03/2020 CYTOLOGY STUDY Slides are reviewed. CYTOLOGY GROSS Received is 60 ml of yellow cloudy fluid labeled with the patient's name and and designated per the requisition as urine. Submitted for cytology preparation. / alvino 11/02/2020 TC:? CPT: 52724
[2020-11-02 08:35] LABS: Cytology, Body Fluid / CSF SEE PATHOLOGY REPORT
[2020-11-02 10:13] LABS: PSA,Total- Diagnostic < 0.01 ng/mL (0.0-4.0)
== END ==
LOC: LAB 08:29 → MTLAB 08:29
PROVIDERS: PCP Family Medicine; Referring Provider Internal Medicine Cardiovascular Disease; Visit Provider Urology
DX: C61 Malignant neoplasm of prostate (principal); Z85.51 Personal history of malignant neoplasm of bladder
CPT/HCPCS: 36415; 84153; 88108; 88313

== ENCOUNTER → 2021-03-08 | Outpatient (CLI) | payer MEDICARE, BC, SELFPAY ==
--- NOTE | 2021-03-08 | IMM_PTH ---
PATIENT: ENMANUEL PHAM LOC: [facility] U#:[id number] AGE/SX: 65/M ROOM: RE03/08/[address]: Dr. Harish Wheeler MD : 1955 BED: DIS: 03/08/2021 SPEC #: [id number] RECD: 03/09/21 13:19 STATUS: KELLEY REQ #: [id number] VINITA: 03/08/21 00:[address]: Harish Wheeler DEPT: IMMUNOHISTOCHEMISTRY RECD BY: Jessica Roper ENTERED: 03/09/21 13:20 SP TYPE: IMMUNO OTHR DR: Dr. Edwar Warner, DO Tissues: Skin of forearm, NOS Procedures: SMA (add) CD10 (add) CD31 (add) CD34 (add) KI-67 (add) MACRO (add) Vimentin (add) SMM (add) Pankeratin (initial) S-100 (add) PHYSICIAN & INSTITUTION [place] [id number] SPECIMEN INFORMATION: Tissue Source: Skin lesion of left forearm Clinical Info: Skin lesion of left forearm Specimen Number: [id number] CPT code: 52408, 98768 x9 METHODOLOGY: Deparaffinized sections of prefer/formalin-fixed tissue or PAP/DQ stained slides are incubated with monoclonal/polyclonal antibodies/oligonucleotide probes. Localization is made via biotin free immunoperoxidase method. Appropriate controls are performed and reacted as expected. Results on target cell population are indicated in the following table: RESULTS: ANTIBODY / CLONE RESULT AE1-3 (AE1/AE3/PCK26) negative CD10 (56C6) positive Vimentin (V9) positive CD31 (NAVNEET/70A) negative CD34 (QBEnd-10) negative Macro (HAM-56) negative Actin (1A4) negative Myosin (simms1) negative S-100 (4C4.9) negative Ki-67 (30-9) positive, 2% These tests were developed and their performance characteristics determined by [facility]. They may not have been cleared or approved by the U.S. Food and Drug Administration. The FDA has determined that such clearance or approval is not necessary. The above immunohistochemical/dualISH markers are ordered and reviewed by the Pathologist. INTERPRETATION: Skin lesion of left forearm, biopsy: Consistent with dermatofibroma. AM:alvino 03/10/2021
[2021-03-08 08:48] VITALS: BMI 26.6
--- NOTE | 2021-03-08 09:00 | LES_PTH ---
PATIENT: ENMANUEL PHAM LOC: [facility] U#:[id number] AGE/SX: 65/M ROOM: RE03/08/[address]: Dr. Harish Wheeler MD : 1955 BED: DIS: 03/08/2021 SPEC #: [id number] RECD: 03/08/21 10:50 STATUS: KELLEY NICO #: [id number] VINITA: 03/08/21 09:[address]: Harish Wheeler DEPT: SURGICAL PATHOLOGY RECD BY: Tessa Bowman ENTERED: 03/08/21 13:06 SP TYPE: Lesion OTHR DR: Dr. Edwar Warner, DO Tissues: Skin of arm Procedures: Surgery Specimen Level IV HEADER OPERATION: Excision of left forearm skin lesion PRE-OP DIAGNOSIS: Skin lesion of left arm L98.9 TISSUE SUBMITTED: Skin lesion left forearm MICROSCOPIC DIAGNOSIS Skin lesion of left forearm, biopsy: Consistent with dermatofibroma. See comment. AM:alvino 03/10/2021 COMMENT Immunohistochemistry ([id number]) supports the above diagnosis. Case has been reviewed in consultation with Dr. Hamlin who concurs with the above diagnosis. IDC:NOELLE MICROSCOPIC DESCRIPTION Slides are reviewed. GROSS DESCRIPTION Received in fixative is one container labeled with the patient's name and designated left arm skin lesion. The specimen consists of a piece of munoz-light brown skin measuring 1.6 x 0.6 cm and up to 0.3 cm in thickness. The specimen is inked, serially sectioned and submitted entirely in one cassette. / NOELLE:alvino 03/08/21 TC:5 CPT: 90437
== END | disposition home or self-care (01) ==
LOC: LABSPEC 12:00
PROVIDERS: PCP Family Medicine; Visit Provider Surgery
DX: L98.9 Disorder of the skin and subcutaneous tissue, unspecified (principal)
CPT/HCPCS: 88305; 88341; 88342

== ENCOUNTER → 2021-05-03 07:17 | Outpatient (CLI) | payer MEDICARE, BC, SELFPAY ==
[2021-03-08 08:48] VITALS: BMI 26.6
--- NOTE | 2021-05-03 08:54 | RAD_ITS ---
STUDY: X-RAY - LEFT HAND, ATTENTION FIRST FINGER REASON FOR EXAM: Male, 65 years old. THUMB TECHNIQUE: 3 view(s) of the left first finger were obtained. COMPARISON: None. RAD/Finger(s) Min 2 Views IMPRESSION: No acute fracture or dislocation of the left first finger. Electronically Signed: Mike Galindo MD at 7:03 EDT Tel , Service support ,
[2021-05-03 10:20] LABS: Absolute Lymphocyte Count 1.39 X10^3/uL (0.83-4.51); Absolute Neutrophil Count 2.7 X10^3/uL (2.0-7.7); Basophil# 0.03 X10^3/uL; Basophil% 0.6 % (0-1); Eosinophil# 0.12 X10^3/uL; Eosinophils% 2.6 % (0-5); Hemoglobin 13.1 g/dL (13.0-16.5); Lymphocyte # 1.39 X10^3/ul (0.83-4.51); Lymphocyte % 29.7 % (19-41); Mean Corp Hgb Conc 32.8 g/dL (32-36); Mean Corpuscular Hgb 30.3 pg (27.0-32.0); Mean Corpuscular Volume 92.6 fL (80-94); Mean Platelet Vol. 9.6 fl (6.2-12.0); Monocyte# 0.44 X10^3/uL; Monocyte% 9.4 % (0-10); NRBC Flagged by Analyzer 0 % (0-5); Neutrophil # 2.68 X10^3/uL (2.7-7.7); Neutrophil % 57.3 % (47-70); Platelet Count 314 K/mm3 (150-450); RBC Distribution Width CV 12.7 % (11.6-14.6); RBC Distribution Width SD 43.1 fl (35.1-43.9); Red Blood Count 4.32 M/mm3 (4.6-6.2); White Blood Count 4.7 K/mm3 (4.4-11.0)
[2021-05-03 10:31] LABS: PTHIN 42.5 pg/mL (18.4-80.1)
[2021-05-03 10:58] LABS: ALB/GLOB Ratio 1.3 RATIO (0.9-2.4); AST(SGOT) 14 U/L (15-37); Alanine Aminotransfer ALT/SGPT 33 U/L (16-61); Albumin, Serum 3.9 g/dL (3.2-5.0); Alkaline Phosphatase 58 U/L (45-117); Anion Gap 7 (5-15); BUN 22 mg/dL (7-18); BUN/Creat Ratio 17.1 RATIO (10-20); CPK Total, Creatine Kinase 67 U/L (39-308); Calcium,Total 8.9 mg/dL (8.5-10.1); Chloride 110 mmol/L (98-107); Cholesterol 213 mg/dL (200); Creatinine, Serum 1.29 mg/dL (0.70-1.30); EST Glomerular Filtration Rate 59 mL/min (>60); Est Glom Filt Rate - Afr Amer 71 mL/min (>60); Glucose 95 mg/dL (74-106); High Density Lipoprotein 49 mg/dL; Potassium 4.1 mmol/L (3.5-5.1); Protein, Total 6.9 g/dL (6.4-8.2); Sodium Level 141 mmol/L (136-145); T4 Free Direct 0.97 ng/dL (0.76-1.46); Thyroid Stim Hormone (TSH) 2.58 uIU/mL (0.358-3.74); Triglycerides 110 mg/dL; Very Low Density Lipoprotein 22 mg/dL (5-40)
[2021-05-03 11:10] LABS: Hepatitis C Antibody Non-Reactive (Nonreactive)
== END ==
PROVIDERS: PCP Family Medicine; Referring Provider Family Medicine; Visit Provider Family Medicine
DX: I25.10 Atherosclerotic heart disease of native coronary artery without angina pectoris (principal); I12.9 Hypertensive chronic kidney disease with stage 1 through stage 4 chronic kidney disease, or unspecified chronic kidney disease; N18.31 Chronic kidney disease, stage 3a; R53.83 Other fatigue; M79.645 Pain in left finger(s)
CPT/HCPCS: 36415; 73140; 80053; 80061; 82550; 83970; 84439; 84443; 85025; 86803

== ENCOUNTER 2021-09-19 14:12 | Outpatient (CLI) | payer MEDICARE, BC, SELFPAY | END 2021-09-19 23:59 | disposition short-term general hospital (02) | LOC: LABSPEC 14:14 | PROVIDERS: PCP Family Medicine; Visit Provider Family Medicine | DX: Z20.828 Contact with and (suspected) exposure to other viral communicable diseases (principal) | CPT/HCPCS: 87635; U0003; U0005 ==

== ENCOUNTER 2021-10-04 15:00 | Outpatient (RCR) | payer MEDICARE, BC, SELFPAY ==
--- NOTE | 2021-08-25 13:41 | HP.OTEVAL_ITS ---
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 Date of Evaluation: 08/25/21 Occupational Therapist: Ashley Muller, MARYLU/Janeth, CHT - Subjective This 65 year old male was seen for OT eval with dx of left unilateral primary osteoarthritis of first carpometacarpal. pt states he had had difficulty with left hand/thumb pain for at least two years. Pt did have sx on 08/03/21 undergoing a left trapezium excision left partial proximal trapezoid excision left CMC arthroplasty with ligament reconstruction tendon-interposition from FCR .. pt states he is pleased with his recovery. pt is currently 3 weeks and 1 day s/p an reports no pain and demo with well fitted thumb spica orthosis - ADLs Fasteners: Tie shoes, Buttons, Zippers, Belt Eating: Bring food to mouth, Use silverware Toileting: Manage clothing Kitchen: Chop with knife, Peel fruits & vegetables, Open jars, Open bottle caps, Pour from pitcher - ROM Wrist: right 70/65 left 60/45 CMC: right 10 left 5 MP: right 35 left 20 IP: right 50 left 30 Opposition: right 10 left NT ROM Comments: all fingers demo full ROM - Strength Building Construction Teacher: right 55# left NT Lateral Pinch: right 16# left NT Tripod Pinch: right 14# left NT - Sensation Sensation Comments: denies - Quick DASH-Disab of Arm,Shoulder& Hand Quick DASH Score: 50.0000 - Goals Goal:100% adherence to protocol: Yes Comment: CMC arthroplasty protocol Goal:Daily scar massage when approriate: Yes Other Goal: PT will demo wrist ROM to within 20* of unaffected UE by d/c - Rehabilitation General Assessment: Pt did have sx on 08/03/21 now 3 weeks and 1 days s/p of undergoing a left trapezium excision left partial proximal trapezoid excision left CMC arthroplasty with ligament reconstruction tendon-interposition from FCR .Pt demo with newly healing structures, limited ROM and use of left UE with ADls and IADLs. pt would benefit from skilled OT services 1-2x week for 6 weeks to return pt to a [facility]. [facility] therapy ed. pt on progression of recovery- initiated short arch wrist ROM, tendon glide for digits, scar mtg, and IP ROM- therapy will progress pt as tolerated and follow [facility] arthroplasty guidelines by [facility]. pt demo understanding and agree to POC. Rehabilitation Potential: Good - Anticipated Interventions A/AAROM/PROM, Strengthening, Scar Care, Triggerpoint Release, Desensitization, Modalities, Orthoses, Joint Protection/Energy Conservation, Ergonomic Education, Education re Diagnosis - Visit Plan Frequency: 1x/Week Duration: 6 Weeks TEXT: Thank you for the opportunity to evaluate your patient. For Medicare and Medicare HMO plans, please review the plan of care and approve it. It will need to be FAXED BACK to us at [phone] for Medicare purposes. Please let me know if there are questions or concerns regarding this plan of care. Physician Signature: Date:
--- NOTE | 2021-09-14 14:07 | OTREVAL_ITS ---
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 Please see the progress note below for an update on the occupational therapy plan of care! Subjective: pt arrives 6 weeks s/p-. pt is using comfort cool thumb brace during the day- orthosis at night- pt states no pain and has initiated using left UE with ADLS and IADLS. Objective/Function: wrist 65/60. CMC 20* initial eval was 5*. MP 30* initial eval 20*. IP 50*initial eval 30*. Thumb opposition tip of LF. left corporate traffic manager strength 13#. pt is using comfort cool thumb brace during the day - orthosis at night- pt has returned to using left UE with ADLS with modification. pt is making gains and therapy will progress pt as he joss. with strengthening. Plan Frequency: 1x/Week Duration: 3 Weeks Plan: will continue following CMC arthroplasty protocol. Goals - Goals Patient Goals: Regain Mobility, Use Hand/Wrist/Arm Normally Again Goal:100% adherence to protocol: Yes Goal:Daily scar massage when approriate: Yes Other Goal: PT will demo wrist ROM to within 20* of unaffected UE by d/c Anticipated Interventions Anticipated Interventions: A/AAROM/PROM, Strengthening, Scar Care, Triggerpoint Release, Desensitization, Modalities, Orthoses, Joint Protection/Energy Conservation, Ergonomic Education, Education re Diagnosis Please do not hesitate to contact me at [phone] by phone or if you have questions or concerns regarding this new plan of care! Sincerely, Ashley Muller, OTR/L, CHT
--- NOTE | 2021-10-17 16:39 | HP.OTDCNRP_ITS ---
ENMANUEL PHAM was seen in my office for initial evaluation on 08/25/21. The following Plan of Care was established for this patient: Initial Frequency: 1x/Week Initial Duration: 3 Weeks Plan: will continue following CMC arthroplasty protocol. [ End ] Anticipated Interventions: A/AAROM/PROM, Strengthening, Scar Care, Triggerpoint Release, Desensitization, Modalities, Orthoses, Joint Protection/Energy Conservation, Ergonomic Education, Education re Diagnosis This patient was last seen in our office 10/04/21. Pertinent comments regarding their Occupational therapy will appear below: pt was seen for 6 OT visits following a CMC arthroplasty - pt called in stated h e was doing well and OK to dc. pt communicated understanding of precautions and his HEP. pt agree to D/C. At this point I will be discontinuing this patient from occupational therapy. I would be happy to see this patient again in the future if found appropriate by the physician. Thank you! Ashley Muller, OTR/L, CHT
== END 2021-10-04 19:00 | disposition home or self-care (01) ==
LOC: OT 15:00
PROVIDERS: PCP Family Medicine
DX: M18.12 Unilateral primary osteoarthritis of first carpometacarpal joint, left hand (principal)
CPT/HCPCS: 97035; 97110; 97140; 97166; 97530

== ENCOUNTER 2021-10-06 14:18 | Outpatient (CLI) | payer MEDICARE, BC, SELFPAY ==
--- NOTE | 2021-10-06 14:23 | CYSPIN_PTH ---
PATIENT: ENMANUEL PHAM LOC: [facility] U#:[id number] AGE/SX: 65/M ROOM: RE10/06/[address]: Dr. Heriberto Sherman MD : 1955 BED: DIS: 10/06/2021 SPEC #: [id number] RECD: 10/07/21 07:10 STATUS: KELLEY REDavid #: [id number] VINITA: 10/06/21 14:[address]: Heriberto Sherman DEPT: CYTOLOGY RECD BY: Tessa Bowman ENTERED: 10/07/21 07:11 SP TYPE: CYSPIN FL OTHR DR: Dr. Edwar Warner, DO Tissues: Urine Procedures: Pap Stain (control) Special Stain Group II Cytospin Fluid HEADER OPERATION: Not noted PRE-OP DIAGNOSIS: Malignant neoplasm of bladder TISSUE SUBMITTED: Urine for cytology DIAGNOSIS CYTOLOGY Urine for cytology (cytospin): Negative for malignant cells. Minimal acute inflammation. See comment. SJ:alvino 10/07/2021 COMMENT Clinical correlation and appropriate follow up are necessary. Please make reference to previous specimens ([id number]) urine for cytology with diagnosis of ?atypical urothelial cells noted suspicious for urothelial carcinoma and ([id number]) urine for cytology with diagnosis of ?rare atypical urothelial cells present.? CYTOLOGY STUDY Slides are reviewed. CYTOLOGY GROSS Received is 60 ml of bright yellow clear fluid labeled with the patient's name and and designated per the requisition as urine. Submitted for cytology preparation. / alvino 10/06/2021 TC:2 CPT: 07537
[2021-10-06 14:24] LABS: Cytology, Body Fluid / CSF SEE PATHOLOGY REPORT
[2021-10-06 18:26] LABS: PSA,Total- Diagnostic < 0.01 ng/mL (0.0-4.0)
== END 2021-10-06 23:59 | disposition short-term general hospital (02) ==
PROVIDERS: PCP Family Medicine; Referring Provider Urology; Visit Provider Urology
DX: C61 Malignant neoplasm of prostate (principal); Z85.51 Personal history of malignant neoplasm of bladder
CPT/HCPCS: 36415; 84153; 88108; 88313

== ENCOUNTER → 2022-05-19 | Outpatient (CLI) | payer MEDICARE, BC, SELFPAY ==
[2022-05-19 10:08] LABS: Absolute Lymphocyte Count 1.14 X10^3/uL (0.83-4.51); Absolute Neutrophil Count 2.2 X10^3/uL (2.0-7.7); Basophil# 0.05 X10^3/uL; Basophil% 1.3 % (0-1); Eosinophils% 2.5 % (0-5); Hematocrit 37.6 % (40-54); Hemoglobin 12.6 g/dL (13.0-16.5); Lymphocyte # 1.14 X10^3/ul (0.83-4.51); Lymphocyte % 28.9 % (19-41); Mean Corp Hgb Conc 33.5 g/dL (32-36); Mean Corpuscular Volume 92.6 fL (80-94); Mean Platelet Vol. 9.6 fl (6.2-12.0); Monocyte# 0.43 X10^3/uL; Monocyte% 10.9 % (0-10); NRBC Flagged by Analyzer 0 % (0-5); Neutrophil # 2.22 X10^3/uL (2.7-7.7); Neutrophil % 56.4 % (47-70); Platelet Count 269 K/mm3 (150-450); RBC Distribution Width CV 13.1 % (11.6-14.6); RBC Distribution Width SD 44.4 fl (35.1-43.9); Red Blood Count 4.06 M/mm3 (4.6-6.2); White Blood Count 3.9 K/mm3 (4.4-11.0)
[2022-05-19 10:32] LABS: Anion Gap 6 (5-15); BUN 22 mg/dL (7-18); BUN/Creat Ratio 15.4 RATIO (10-20); Calcium,Total 8.4 mg/dL (8.5-10.1); Chloride 112 mmol/L (98-107); Creatinine, Serum 1.43 mg/dL (0.70-1.30); EST Glomerular Filtration Rate 52 mL/min (>60); Est Glom Filt Rate - Afr Amer 63 mL/min (>60); Glucose 102 mg/dL (74-106); Potassium 4.2 mmol/L (3.5-5.1); Sodium Level 142 mmol/L (136-145)
== END | disposition home or self-care (01) ==
LOC: MTLAB 08:17
PROVIDERS: PCP Family Medicine; Referring Provider Family Medicine; Visit Provider Family Medicine
DX: D64.9 Anemia, unspecified (principal); N18.30 Chronic kidney disease, stage 3 unspecified
CPT/HCPCS: 36415; 80048; 85025

== ENCOUNTER → 2022-07-11 | Outpatient (CLI) | payer MEDICARE, BC, SELFPAY ==
[2022-07-11 12:06] LABS: Absolute Lymphocyte Count 1.01 X10^3/uL (0.83-4.51); Absolute Neutrophil Count 4.1 X10^3/uL (2.0-7.7); Basophil# 0.06 X10^3/uL; Basophil% 1.1 % (0-1); Eosinophil# 0.04 X10^3/uL; Eosinophils% 0.7 % (0-5); Hematocrit 37.8 % (40-54); Hemoglobin 12.9 g/dL (13.0-16.5); Lymphocyte # 1.01 X10^3/ul (0.83-4.51); Mean Corp Hgb Conc 34.1 g/dL (32-36); Mean Corpuscular Hgb 31.4 pg (27.0-32.0); Monocyte# 0.37 X10^3/uL; Monocyte% 6.6 % (0-10); NRBC Flagged by Analyzer 0 % (0-5); Neutrophil % 72.9 % (47-70); Platelet Count 392 K/mm3 (150-450); RBC Distribution Width CV 12.6 % (11.6-14.6); Red Blood Count 4.11 M/mm3 (4.6-6.2); White Blood Count 5.6 K/mm3 (4.4-11.0)
[2022-07-11 12:47] LABS: Protein, Urine (Random) 8.6 mg/dL (<11.9); Protein:Creat Ratio 90 mg/g CRE (0-200)
[2022-07-11 12:49] LABS: Anion Gap 8 (5-15); BUN 26 mg/dL (7-18); BUN/Creat Ratio 16.9 RATIO (10-20); Calcium,Total 9.1 mg/dL (8.5-10.1); Chloride 109 mmol/L (98-107); Creatinine, Serum 1.54 mg/dL (0.70-1.30); EST Glomerular Filtration Rate 48 mL/min (>60); Est Glom Filt Rate - Afr Amer 58 mL/min (>60); Ferritin 179 ng/mL (26-388); Glucose 106 mg/dL (74-106); Iron 98 ug/dL (65-175); Iron Binding Capacity,Total 321 ug/dL (250-450); PERCENT IRON SATURATION 30.5 % (15.0-55.0); PTHIN 40.6 pg/mL (18.4-80.1); Sodium Level 139 mmol/L (136-145); Uric Acid 8.3 mg/dL (3.5-7.2)
[2022-07-11 12:51] LABS: Vitamin D,25 Hydroxy 60.6 ng/mL
[2022-07-13 15:08] LABS: PROEL- A/G Ratio 1.5 (0.7-1.7); PROEL- Albumin 3.9 g/dL (2.9-4.4); PROEL- Alpha-1 Globulin 0.3 g/dL (0.0-0.4); PROEL- Alpha-2 Globulin 0.7 g/dL (0.4-1.0); PROEL- Beta Globulin 0.9 g/dL (0.7-1.3); PROEL- Gamma Globulin 0.7 g/dL (0.4-1.8); PROEL- Globulin, Total 2.6 g/dL (2.2-3.9); PROEL- TOTAL PROTEIN 6.5 g/dL (6.0-8.5); PROELU- Albumin, Urine 26.1 % (.); PROELU- Alpha-1-Globulin,Ur 7.2 % (.); PROELU- Alpha-2-Globulin,Ur 8.5 % (.); PROELU- Beta Globulin, Ur 28.6 % (.); PROELU- Gamma Globulin, Ur 29.7 % (.); Total Protein, Ur 4.9 mg/dL (Not Estab.)
== END | disposition home or self-care (01) ==
LOC: MTLAB 09:49
PROVIDERS: PCP Family Medicine; Referring Provider Student in an Organized Health Care Education/Training Program; Visit Provider Student in an Organized Health Care Education/Training Program
DX: N18.31 Chronic kidney disease, stage 3a (principal); D63.1 Anemia in chronic kidney disease
CPT/HCPCS: 36415; 80048; 82306; 82570; 82728; 83540; 83550; 83970; 84156; 84165; 84166; 84550; 85025; 86335

== ENCOUNTER → 2022-10-09 | Outpatient (CLI) | payer MEDICARE, BC, SELFPAY ==
[2022-10-09 12:22] LABS: Absolute Lymphocyte Count 1.09 X10^3/uL (0.83-4.51); Absolute Neutrophil Count 3.3 X10^3/uL (2.0-7.7); Basophil# 0.04 X10^3/uL; Basophil% 0.8 % (0-1); Eosinophil# 0.11 X10^3/uL; Eosinophils% 2.2 % (0-5); Hematocrit 38.9 % (40-54); Hemoglobin 12.9 g/dL (13.0-16.5); Lymphocyte # 1.09 X10^3/ul (0.83-4.51); Lymphocyte % 21.5 % (19-41); Mean Corp Hgb Conc 33.2 g/dL (32-36); Mean Corpuscular Hgb 32.3 pg (27.0-32.0); Mean Corpuscular Volume 97.3 fL (80-94); Mean Platelet Vol. 9.3 fl (6.2-12.0); Monocyte# 0.47 X10^3/uL; Monocyte% 9.3 % (0-10); NRBC Flagged by Analyzer 0 % (0-5); Neutrophil # 3.33 X10^3/uL (2.7-7.7); Neutrophil % 65.8 % (47-70); Platelet Count 283 K/mm3 (150-450); RBC Distribution Width CV 14.6 % (11.6-14.6); RBC Distribution Width SD 52.2 fl (35.1-43.9); White Blood Count 5.1 K/mm3 (4.4-11.0)
[2022-10-09 12:31] LABS: Anion Gap 7 (5-15); BUN 21 mg/dL (7-18); BUN/Creat Ratio 15.1 RATIO (10-20); Calcium,Total 8.9 mg/dL (8.5-10.1); Chloride 110 mmol/L (98-107); Creatinine, Serum 1.39 mg/dL (0.70-1.30); EST Glomerular Filtration Rate 54 mL/min (>60); Est Glom Filt Rate - Afr Amer 65 mL/min (>60); Glucose 108 mg/dL (74-106); Potassium 4.1 mmol/L (3.5-5.1); Sodium Level 141 mmol/L (136-145); Uric Acid 6.3 mg/dL (3.5-7.2)
== END | disposition home or self-care (01) ==
PROVIDERS: PCP Family Medicine; Referring Provider Student in an Organized Health Care Education/Training Program; Visit Provider Student in an Organized Health Care Education/Training Program
DX: N18.31 Chronic kidney disease, stage 3a (principal)
CPT/HCPCS: 36415; 80048; 84550; 85025

== ENCOUNTER → 2022-10-27 | Outpatient (CLI) | payer MEDICARE, BC, SELFPAY ==
--- NOTE | 2022-10-27 07:41 | CYSPIN_PTH ---
PATIENT: ENMANUEL PHAM LOC: [facility] U#:[id number] AGE/SX: 66/M ROOM: RE10/27/[address]: Dr. Heriberto Sherman MD : 1955 BED: DIS: 10/27/2022 SPEC #: [id number] RECD: 10/27/22 10:34 STATUS: KELLEY REQ #: [id number] VINITA: 10/27/22 07:[address]: Heriberto Sherman DEPT: CYTOLOGY RECD BY: Tessa Bowman ENTERED: 10/27/22 10:35 SP TYPE: CYSPIN FL OTHR DR: Dr. Edwar Warner, DO Tissues: Urine Procedures: Pap Stain (control) Special Stain Group II Cytospin Fluid HEADER OPERATION: Not noted PRE-OP DIAGNOSIS: Malignant neoplasm of prostate TISSUE SUBMITTED: Urine for cytology DIAGNOSIS CYTOLOGY Urine for cytology (cytospin): Atypical urothelial cells noted ([facility] Category III). See comment. SJ:alvino 10/27/2022 COMMENT The [facility] System for urine cytology diagnostic categorization was used in the evaluation of this case. Case has been reviewed in consultation with Dr. Casillas who concurs with the above diagnosis. IDC:AM CYTOLOGY STUDY Slides are reviewed. CYTOLOGY GROSS Received is 25.5 ml of yellow cloudy fluid labeled with the patient's name and and designated per the requisition as urine. Submitted for cytology preparation. / alvino 10/27/2022 TC:5 CPT: 66266
[2022-10-27 07:47] LABS: Cytology, Body Fluid / CSF SEE PATHOLOGY REPORT
[2022-10-27 10:12] LABS: PSA,Total- Diagnostic < 0.01 ng/mL (0.0-4.0)
== END | disposition home or self-care (01) ==
LOC: MTLAB 07:40
PROVIDERS: PCP Family Medicine; Referring Provider Urology; Visit Provider Urology
DX: C61 Malignant neoplasm of prostate (principal)
CPT/HCPCS: 36415; 84153; 88108; 88313

== ENCOUNTER → 2022-12-21 | Outpatient (CLI) | payer MEDICARE, BC, SELFPAY ==
[2022-12-21 18:16] LABS: Anion Gap 6 (5-15); BUN 17 mg/dL (7-18); BUN/Creat Ratio 10.5 RATIO (10-20); Calcium,Total 8.6 mg/dL (8.5-10.1); Chloride 108 mmol/L (98-107); Creatinine, Serum 1.62 mg/dL (0.70-1.30); EST Glomerular Filtration Rate 45 mL/min (>60); Est Glom Filt Rate - Afr Amer 55 mL/min (>60); Glucose 100 mg/dL (74-106); Sodium Level 139 mmol/L (136-145)
== END | disposition home or self-care (01) ==
LOC: BFHLAB 14:07
PROVIDERS: PCP Family Medicine; Referring Provider Family Medicine; Visit Provider Family Medicine
DX: N18.31 Chronic kidney disease, stage 3a (principal)
CPT/HCPCS: 36415; 80048

== ENCOUNTER → 2023-02-19 | Outpatient (CLI) | payer MEDICARE, BC, SELFPAY ==
[2023-02-19 12:06] LABS: Absolute Lymphocyte Count 0.92 X10^3/uL (0.83-4.51); Absolute Neutrophil Count 2.6 X10^3/uL (2.0-7.7); Basophil# 0.03 X10^3/uL; Basophil% 0.7 % (0-1); Eosinophil# 0.09 X10^3/uL; Eosinophils% 2.2 % (0-5); Hematocrit 37.2 % (40-54); Hemoglobin 12.1 g/dL (13.0-16.5); Lymphocyte # 0.92 X10^3/ul (0.83-4.51); Lymphocyte % 22.9 % (19-41); Mean Corp Hgb Conc 32.5 g/dL (32-36); Mean Corpuscular Hgb 30.8 pg (27.0-32.0); Mean Corpuscular Volume 94.7 fL (80-94); Mean Platelet Vol. 9.4 fl (6.2-12.0); Monocyte# 0.37 X10^3/uL; Monocyte% 9.2 % (0-10); NRBC Flagged by Analyzer 0 % (0-5); Neutrophil % 64.8 % (47-70); Platelet Count 290 K/mm3 (150-450); RBC Distribution Width CV 13.2 % (11.6-14.6); RBC Distribution Width SD 46.1 fl (35.1-43.9); Red Blood Count 3.93 M/mm3 (4.6-6.2)
[2023-02-19 12:13] LABS: Protein, Urine (Random) 11.5 mg/dL (<11.9); Protein:Creat Ratio 101 mg/g CRE (0-200)
[2023-02-19 12:19] LABS: Vitamin B12 423 pg/mL (211-911)
[2023-02-19 12:22] LABS: Hemoglobin A1c 5.3 % (3.8-5.6)
[2023-02-19 12:27] LABS: Anion Gap 0 (5-15); BUN 23 mg/dL (7-18); BUN/Creat Ratio 16.5 RATIO (10-20); Calcium,Total 8.6 mg/dL (8.5-10.1); Chloride 114 mmol/L (98-107); Cholesterol 191 mg/dL (200); Creatinine, Serum 1.39 mg/dL (0.70-1.30); EST Glomerular Filtration Rate 54 mL/min (>60); Est Glom Filt Rate - Afr Amer 65 mL/min (>60); Glucose 97 mg/dL (74-106); High Density Lipoprotein 51 mg/dL; Potassium 4.2 mmol/L (3.5-5.1); Sodium Level 137 mmol/L (136-145); T4 Free Direct 0.96 ng/dL (0.76-1.46); Thyroid Stim Hormone (TSH) 2.14 uIU/mL (0.358-3.74); Triglycerides 88 mg/dL; Very Low Density Lipoprotein 18 mg/dL (5-40)
== END | disposition home or self-care (01) ==
LOC: BFHLAB 08:33
PROVIDERS: PCP Family Medicine; Referring Provider Family Medicine; Visit Provider Family Medicine
DX: I12.9 Hypertensive chronic kidney disease with stage 1 through stage 4 chronic kidney disease, or unspecified chronic kidney disease (principal); N18.31 Chronic kidney disease, stage 3a; R73.9 Hyperglycemia, unspecified; E55.9 Vitamin D deficiency, unspecified; R53.83 Other fatigue
CPT/HCPCS: 36415; 80048; 80061; 82306; 82570; 82607; 83036; 84156; 84439; 84443; 85025

== ENCOUNTER → 2023-02-21 | Outpatient (CLI) | payer MEDICARE, BC, SELFPAY ==
--- NOTE | 2023-02-21 13:01 | STEWCON_ITS ---
Reason For Study: Dyspnea; HTN Stress Results Protocol: Ac Protocol WITH DEFINITY Maximum Predicted HR: 151 bpm Target HR: 128 bpm % Maximum Predicted HR: 97 % DurationHeart Rate Stage (mm:ss) (bpm) BP Comment Baseline 65 116/80No Chest Pain; 3.5 ML Diluted Definity Ac Protocol Stage I 3:00 114 122/72No Chest Pain Ac Protocol Stage II 3:00 131 132/68No Chest Pain; Mild Dyspnea Ac Protocol Stage III 2:00 146 / No Chest Pain; Mild Dyspnea Recovery 93 120/72No Chest Pain; No Dyspnea Stress Duration: 8:00 mm:ss Maximum Stress HR: 146 bpm METS: 10 Baseline Echocardiogram Findings Stress Echo Wall motion Data Resting WM Intermediate WM Stress WM Time Measurements MV dec time: 0.16 sec Doppler Measurements & Calculations MV E max justyn: 66.2 cm/sec Lat Peak E' Justyn: 13.3 cm/sec Med Peak E' Justyn: 10.4 cm/sec MV A max justyn: 64.9 cm/sec E/E' lat: 5.0 E/E' med: 6.4 MV E/A: 1.0 MV dec slope: 416.1 cm/sec2 ECHO/Stress Test Echo W/Contrast Interpretation Summary Exercise stress echo. 67-year-old man with a history of hypertension. Stress protocol: Resting EKG demonstrates normal sinus rhythm with a rate of 71 bpm normal inter vals are noted resting blood pressure is 116/80 mmHg. The patient exercised according to the r egular Ac protocol for a total duration of 8 minutes. Patient completed 2 minutes into stage III o f the Ac protocol. The maximum heart rate attained was 150 bpm which was 99% of max impacted heart rate the maximum workload was 10.1 metabolic equivalents. At rest there were no ST or T wave vitaliy nges noted to suggest ischemia and at peak exercise upsloping ST changes were noted which did not yoon t the criteria for ischemia the test was terminated due to the target heart rate being achieved. N ormal blood pressure response to exercise was noted. The peak blood pressure was 142/70 mmHg. Stress echocardiogram. Stress echocardiographic images were obtained at rest an d with exercise with Definity. The resting echocardiogram demonstrated ejection fraction of 55% and at peak exercise the estimated ejection fraction was 70% with no wall motion abnormalities noted. Conclusion: Normal exercise stress echocardiogram with no evidence of ischemia at a high wo rkload. Ordering Physician: Edwar Warner Referring Physician: Edwar Warner Performed By: Shahram Cordero RCS
== END | disposition home or self-care (01) ==
LOC: CVS 12:59
PROVIDERS: PCP Family Medicine; Referring Provider Family Medicine; Visit Provider Family Medicine
DX: R06.09 Other forms of dyspnea (principal); I10 Essential (primary) hypertension
CPT/HCPCS: 93017; 93350; Q9957; A4216; C8928

== ENCOUNTER → 2023-03-12 | Outpatient (CLI) | payer MEDICARE, BC, SELFPAY | END | disposition home or self-care (01) | PROVIDERS: PCP Family Medicine; Referring Provider Family Medicine; Visit Provider Family Medicine | DX: R00.0 Tachycardia, unspecified (principal) | CPT/HCPCS: 93225; 93226 ==

== ENCOUNTER → 2023-07-02 | Outpatient (CLI) | payer MEDICARE, BC, SELFPAY ==
[2023-07-02 10:26] LABS: Anion Gap 7 (5-15); BUN 20 mg/dL (7-18); BUN/Creat Ratio 13.6 RATIO (10-20); Calcium,Total 8.6 mg/dL (8.5-10.1); Chloride 114 mmol/L (98-107); Creatinine, Serum 1.47 mg/dL (0.70-1.30); EST Glomerular Filtration Rate 50 mL/min (>60); Est Glom Filt Rate - Afr Amer 61 mL/min (>60); Glucose 100 mg/dL (74-106); PTHIN 50.1 pg/mL (18.4-80.1); Potassium 4.1 mmol/L (3.5-5.1); Sodium Level 143 mmol/L (136-145); Uric Acid 5.8 mg/dL (3.5-7.2)
[2023-07-02 10:30] LABS: Vitamin D,25 Hydroxy 58.9 ng/mL
[2023-07-02 10:36] LABS: Protein, Urine (Random) 19.3 mg/dL (<11.9); Protein:Creat Ratio 119 mg/g CRE (0-200)
[2023-07-02 12:23] LABS: Absolute Lymphocyte Count 1.06 X10^3/uL (0.83-4.51); Basophil# 0.04 X10^3/uL; Basophil% 0.9 % (0-1); Eosinophil# 0.07 X10^3/uL; Eosinophils% 1.5 % (0-5); Hematocrit 37.6 % (40-54); Hemoglobin 12.3 g/dL (13.0-16.5); Lymphocyte # 1.06 X10^3/ul (0.83-4.51); Lymphocyte % 23.4 % (19-41); Mean Corp Hgb Conc 32.7 g/dL (32-36); Mean Corpuscular Hgb 30.9 pg (27.0-32.0); Mean Corpuscular Volume 94.5 fL (80-94); Mean Platelet Vol. 9.5 fl (6.2-12.0); Monocyte# 0.34 X10^3/uL; Monocyte% 7.5 % (0-10); NRBC Flagged by Analyzer 0 % (0-5); Neutrophil % 66.3 % (47-70); Platelet Count 299 K/mm3 (150-450); RBC Distribution Width CV 13.1 % (11.6-14.6); RBC Distribution Width SD 45.2 fl (35.1-43.9); Red Blood Count 3.98 M/mm3 (4.6-6.2); White Blood Count 4.5 K/mm3 (4.4-11.0)
== END | disposition home or self-care (01) ==
PROVIDERS: PCP Family Medicine; Referring Provider Student in an Organized Health Care Education/Training Program; Visit Provider Student in an Organized Health Care Education/Training Program
DX: N18.32 Chronic kidney disease, stage 3b (principal); E21.1 Secondary hyperparathyroidism, not elsewhere classified; D63.1 Anemia in chronic kidney disease
CPT/HCPCS: 36415; 80048; 82306; 82570; 83970; 84156; 84550; 85025

== ENCOUNTER → 2023-11-08 | Outpatient (CLI) | payer MEDICARE, BC, SELFPAY ==
[2023-11-08 18:39] LABS: PSA,Total- Diagnostic < 0.01 ng/mL (0.0-4.0)
== END | disposition home or self-care (01) ==
LOC: MTLAB 15:12
PROVIDERS: PCP Family Medicine; Referring Provider Urology; Visit Provider Urology
DX: C61 Malignant neoplasm of prostate (principal); Z85.51 Personal history of malignant neoplasm of bladder; Z87.442 Personal history of urinary calculi
CPT/HCPCS: 36415; 84153

== ENCOUNTER → 2024-01-23 | Outpatient (CLI) | payer MEDICARE, BC, SELFPAY ==
[2024-01-23 10:23] LABS: Absolute Lymphocyte Count 0.93 X10^3/uL (0.83-4.51); Absolute Neutrophil Count 2.8 X10^3/uL (2.0-7.7); Basophil# 0.02 X10^3/uL; Basophil% 0.5 % (0-1); Eosinophil# 0.04 X10^3/uL; Hematocrit 36.6 % (40-54); Hemoglobin 11.8 g/dL (13.0-16.5); Lymphocyte # 0.93 X10^3/ul (0.83-4.51); Lymphocyte % 22.7 % (19-41); Mean Corp Hgb Conc 32.2 g/dL (32-36); Mean Corpuscular Hgb 29.9 pg (27.0-32.0); Mean Corpuscular Volume 92.7 fL (80-94); Mean Platelet Vol. 9.3 fl (6.2-12.0); Monocyte# 0.31 X10^3/uL; Monocyte% 7.6 % (0-10); NRBC Flagged by Analyzer 0 % (0-5); Neutrophil # 2.78 X10^3/uL (2.7-7.7); Platelet Count 353 K/mm3 (150-450); RBC Distribution Width CV 12.9 % (11.6-14.6); RBC Distribution Width SD 43.7 fl (35.1-43.9); Red Blood Count 3.95 M/mm3 (4.6-6.2); White Blood Count 4.1 K/mm3 (4.4-11.0)
[2024-01-23 11:13] LABS: Vitamin D,25 Hydroxy 72.4 ng/mL
[2024-01-23 11:37] LABS: Protein, Urine (Random) 24.6 mg/dL (<11.9); Protein:Creat Ratio 140 mg/g CRE (0-200)
[2024-01-23 13:31] LABS: PTHIN 63.4 pg/mL (18.4-80.1)
[2024-01-23 14:03] LABS: Anion Gap 6 (5-15); BUN 19 mg/dL (7-18); BUN/Creat Ratio 11.7 RATIO (10-20); Calcium,Total 8.8 mg/dL (8.5-10.1); Chloride 110 mmol/L (98-107); Creatinine, Serum 1.62 mg/dL (0.70-1.30); EST Glomerular Filtration Rate 45 mL/min (>60); Est Glom Filt Rate - Afr Amer 54 mL/min (>60); Glucose 124 mg/dL (74-106); Potassium 3.7 mmol/L (3.5-5.1); Sodium Level 140 mmol/L (136-145); Uric Acid 6.4 mg/dL (3.5-7.2)
== END | disposition home or self-care (01) ==
PROVIDERS: PCP Family Medicine; Referring Provider Student in an Organized Health Care Education/Training Program; Visit Provider Student in an Organized Health Care Education/Training Program
DX: N18.31 Chronic kidney disease, stage 3a (principal); D63.1 Anemia in chronic kidney disease; E21.1 Secondary hyperparathyroidism, not elsewhere classified
CPT/HCPCS: 36415; 80048; 82306; 82570; 83970; 84156; 84550; 85025

== ENCOUNTER → 2024-08-12 | Outpatient (CLI) | payer MEDICARE, BC, SELFPAY ==
[2024-08-12 09:59] LABS: Protein, Urine (Random) 10.1 mg/dL (<11.9); Protein:Creat Ratio 120 mg/g CRE (0-200)
[2024-08-12 10:06] LABS: Absolute Lymphocyte Count 1.09 X10^3/uL (0.83-4.51); Absolute Neutrophil Count 2.8 X10^3/uL (2.0-7.7); Basophil# 0.04 X10^3/uL; Basophil% 0.9 % (0-1); Eosinophil# 0.18 X10^3/uL; Eosinophils% 3.9 % (0-5); Hematocrit 40.5 % (40-54); Hemoglobin 12.9 g/dL (13.0-16.5); Lymphocyte # 1.09 X10^3/ul (0.83-4.51); Lymphocyte % 23.7 % (19-41); Mean Corp Hgb Conc 31.9 g/dL (32-36); Mean Corpuscular Hgb 30.4 pg (27.0-32.0); Mean Corpuscular Volume 95.5 fL (80-94); Mean Platelet Vol. 9.4 fl (6.2-12.0); Monocyte% 10.9 % (0-10); NRBC Flagged by Analyzer 0 % (0-5); Neutrophil # 2.77 X10^3/uL (2.7-7.7); Neutrophil % 60.2 % (47-70); Platelet Count 314 K/mm3 (150-450); RBC Distribution Width CV 13.1 % (11.6-14.6); Red Blood Count 4.24 M/mm3 (4.6-6.2); White Blood Count 4.6 K/mm3 (4.4-11.0)
[2024-08-12 10:24] LABS: PTHIN 32.7 pg/mL (18.4-80.1)
[2024-08-12 10:26] LABS: ALB/GLOB Ratio 1.3 RATIO (0.9-2.4); AST(SGOT) 8 U/L (15-37); Alanine Aminotransfer ALT/SGPT 26 U/L (16-61); Albumin, Serum 4.1 g/dL (3.2-5.0); Alkaline Phosphatase 71 U/L (45-117); Anion Gap 5 (5-15); BUN 15 mg/dL (7-18); BUN/Creat Ratio 12.5 RATIO (10-20); Calcium,Total 9.3 mg/dL (8.5-10.1); Chloride 109 mmol/L (98-107); Cholesterol 194 mg/dL (200); EST Glomerular Filtration Rate 64 mL/min (>60); Est Glom Filt Rate - Afr Amer 77 mL/min (>60); Globulin 3.1 g/dL (2.2-4.2); Glucose 94 mg/dL (74-106); High Density Lipoprotein 61 mg/dL; Potassium 4.1 mmol/L (3.5-5.1); Protein, Total 7.2 g/dL (6.4-8.2); Sodium Level 139 mmol/L (136-145); Triglycerides 91 mg/dL; Uric Acid 5.1 mg/dL (3.5-7.2); Very Low Density Lipoprotein 18 mg/dL (5-40)
[2024-08-12 10:27] LABS: Vitamin D,25 Hydroxy 56.4 ng/mL
== END | disposition home or self-care (01) ==
LOC: MTLAB 07:12
PROVIDERS: PCP Family Medicine; Referring Provider Family Medicine; Visit Provider Family Medicine
DX: I12.9 Hypertensive chronic kidney disease with stage 1 through stage 4 chronic kidney disease, or unspecified chronic kidney disease (principal); N18.31 Chronic kidney disease, stage 3a; E79.0 Hyperuricemia without signs of inflammatory arthritis and tophaceous disease; E78.5 Hyperlipidemia, unspecified
CPT/HCPCS: 36415; 80053; 80061; 82306; 82570; 83970; 84156; 84550; 85025

== ENCOUNTER → 2024-10-28 | Outpatient (CLI) | payer MEDICARE, BC, SELFPAY ==
[2024-10-28 11:07] LABS: PSA,Total- Diagnostic < 0.01 ng/mL (0.0-4.0)
== END | disposition home or self-care (01) ==
LOC: MTLAB 07:56
PROVIDERS: PCP Family Medicine; Referring Provider Urology; Visit Provider Urology
DX: C61 Malignant neoplasm of prostate (principal)
CPT/HCPCS: 36415; 84153

== ENCOUNTER → 2024-12-18 | Outpatient (CLI) | payer MEDICARE, BC, SELFPAY ==
[2024-12-18 16:55] LABS: Anion Gap 14 (5-15); BUN 19 mg/dL (4-19); BUN/Creat Ratio 13.1 RATIO (10-20); Calcium,Total 9.3 mg/dL (7.6-11.0); Carbon Dioxide 18.8 mmol/L (21.0-32.0); Chloride 108 mmol/L (98-108); Creatinine, Serum 1.43 mg/dL (0.70-1.20); EST Glomerular Filtration Rate 52 (>60); Glucose 98 mg/dL (70-99); Sodium Level 140 mmol/L (133-145)
== END | disposition home or self-care (01) ==
LOC: BFHLAB 11:44
PROVIDERS: PCP Family Medicine; Visit Provider Family Medicine
DX: I10 Essential (primary) hypertension (principal)
CPT/HCPCS: 36415; 80048

== ENCOUNTER → 2025-01-14 | Outpatient (CLI) | payer MEDICARE, BC, SELFPAY ==
[2025-01-14 13:17] LABS: Anion Gap 11 (5-15); BUN 17 mg/dL (4-19); BUN/Creat Ratio 14.5 RATIO (10-20); Calcium,Total 9.3 mg/dL (7.6-11.0); Carbon Dioxide 23.8 mmol/L (21.0-32.0); Chloride 104 mmol/L (98-108); Creatinine, Serum 1.19 mg/dL (0.70-1.20); EST Glomerular Filtration Rate 65 (>60); Glucose 97 mg/dL (70-99); Potassium 4.1 mmol/L (3.3-5.1); Sodium Level 139 mmol/L (133-145)
[2025-01-14 13:19] LABS: Hemoglobin A1c 5.3 % (<=5.6)
== END | disposition home or self-care (01) ==
LOC: MTLAB 10:01
PROVIDERS: PCP Family Medicine; Referring Provider Family Medicine; Visit Provider Family Medicine
DX: I10 Essential (primary) hypertension (principal); R73.01 Impaired fasting glucose
CPT/HCPCS: 36415; 80048; 83036

== ENCOUNTER → 2025-04-17 | Outpatient (CLI) | payer MEDICARE, BC, SELFPAY ==
[2025-04-17 11:31] LABS: Anion Gap 13 (5-15); BUN 19 mg/dL (4-19); BUN/Creat Ratio 14.5 RATIO (10-20); Calcium,Total 9.3 mg/dL (7.6-11.0); Carbon Dioxide 21.2 mmol/L (21.0-32.0); Chloride 106 mmol/L (98-108); Glucose 104 mg/dL (70-99); Potassium 4.4 mmol/L (3.3-5.1)
== END | disposition home or self-care (01) ==
LOC: MTLAB 08:35
PROVIDERS: PCP Family Medicine; Referring Provider Family Medicine; Visit Provider Family Medicine
DX: I25.10 Atherosclerotic heart disease of native coronary artery without angina pectoris (principal); N18.31 Chronic kidney disease, stage 3a; I12.9 Hypertensive chronic kidney disease with stage 1 through stage 4 chronic kidney disease, or unspecified chronic kidney disease; E78.5 Hyperlipidemia, unspecified; E79.0 Hyperuricemia without signs of inflammatory arthritis and tophaceous disease
CPT/HCPCS: 36415; 80048

== ENCOUNTER → 2025-05-26 | Outpatient (CLI) | payer MEDICARE, BC, SELFPAY ==
[2025-05-26 10:54] LABS: Anion Gap 11 (5-15); BUN 19 mg/dL (4-19); BUN/Creat Ratio 14.0 RATIO (10-20); Calcium,Total 8.9 mg/dL (7.6-11.0); Carbon Dioxide 20.9 mmol/L (21.0-32.0); Chloride 109 mmol/L (98-108); Glucose 101 mg/dL (70-99); Potassium 4.3 mmol/L (3.3-5.1)
== END | disposition home or self-care (01) ==
LOC: MTLAB 08:50
PROVIDERS: PCP Family Medicine; Referring Provider Family Medicine; Visit Provider Family Medicine
DX: I10 Essential (primary) hypertension (principal)
CPT/HCPCS: 36415; 80048